=== PATIENT | female | born 1985 | race Caucasian/White ===

== ENCOUNTER 2017-07-16 18:36 | Emergency (ER) | payer BC, OTHER ==
[2017-07-16] MEDS ORDERED: SODIUM CHLORIDE 0.9% 1,000 ML IV STA (18:50)
[2017-07-16] MEDS ORDERED: methylPREDNISolone SOD SUCCI 125 MG/2 ML VIAL IV STA (18:50)
[2017-07-16] MEDS ORDERED: diphenhydrAMINE 50 MG/ML 1 ML VIAL IVP STA (18:50)
[2017-07-16] MEDS ORDERED: FAMOTIDINE 20 MG/2 ML VIAL IV STA (18:50)
--- NOTE | 2017-07-16 18:53 | ED ---
Allergic Reaction HPI - General Chief complaint: Allergic Reaction Stated complaint: ALLERGIC REACTION Time Seen by Provider: 07/16/17 18:43 Source: patient Mode of arrival: ambulatory Limitations: no limitations - History of Present Illness Initial Comments: 32-year-old female patient presents to the emergency department today for complaints of ALLERGIC reaction. Patient states that this morning she started to develop a rash over her abdomen. States that throughout the afternoon it has started to spread down to her legs. Patient states the rash is very itchy and burning. States that in the car on the way here her lips started to tingle. Patient is unsure what could be causing this reaction. States that she was sick since Thursday with vomiting and diarrhea. States that symptoms resolved on Thursday. States that she has had a decreased appetite since then. States that she did apply Benadryl cream to the rash however did not help. She denies ingestion of any other medications. Denies any use of new soaps, lotions , creams, acosta. Patient denies any throat swelling or difficulty breathing. Patient denies any recent fever, chills, chest pain, abdominal pain, back pain, numbness, tingling, dizziness, weakness, hematuria, dysuria, urinary urgency, urinary frequency, headache, visual changes, or any other complaints. - Related Data Home Medications Medication Instructions Recorded Confirmed HYDROcodone/APAP 10-325MG [[place] 0.5 tab PO BID PRN 07/16/17 07/16/17 10-325] Norgestimate-Ethinyl Estradiol 1 tab PO DAILY 07/16/17 07/16/17 [Sprintec 28 Day Tablet] Previous Rx's Medication Instructions Recorded Famotidine [Pepcid] 20 mg PO DAILY #3 tablet 07/16/17 predniSONE 50 mg PO DAILY #3 tablet 07/16/17 Allergies Allergy/AdvReac Type Severity Reaction Status Date / Time No Known Allergies Allergy Verified 07/16/17 19:14 Review of Systems ROS Statement: Those systems with pertinent positive or pertinent negative responses have been documented in the HPI. ROS Other: All systems not noted in ROS Statement are negative. Past Medical History Past Medical History: No Reported History History of Any Multi-Drug Resistant Organisms: None Reported Additional Past Surgical History / Comment(s): Patient has had nose surgery that resulted from a dog bite. Past Anesthesia/Blood Transfusion Reactions: No Reported Reaction Past Psychological History: No Psychological Hx Reported Smoking Status: Current every day smoker Past Alcohol Use History: None Reported Past Drug Use History: None Reported - Past Family History Mother Family Medical History: Thyroid Disorder General Exam Limitations: no limitations General appearance: alert, in no apparent distress, other (This is a well- developed, well-nourished adult female patient in no acute distress. Vital signs upon presentation are temperature 98.0F, pulse 90, respirations 20, blood pressure 154/91, pulse ox 100% on room air.) Eye exam: Present: normal appearance, PERRL, EOMI. Absent: scleral icterus, conjunctival injection, periorbital swelling ENT exam: Present: normal exam, normal oropharynx, mucous membranes moist Respiratory exam: Present: normal lung sounds bilaterally. Absent: respiratory distress, wheezes, rales, rhonchi, stridor Cardiovascular Exam: Present: regular rate, normal rhythm, normal heart sounds. Absent: systolic murmur, diastolic murmur, rubs, gallop, clicks GI/Abdominal exam: Present: soft, normal bowel sounds. Absent: distended, tenderness, guarding, rebound, rigid Neurological exam: Present: alert, oriented X3, CN II-XII intact Psychiatric exam: Present: normal affect, normal mood Skin exam: Present: warm, dry, intact, normal color, rash (Patient has urticaria over her trunk and her upper thighs.) Course Vital Signs 07/16/17 07/16/17 07/16/17 18:39 19:04 19:12 Temperature 98.0 F 98.3 F Pulse Rate 90 69 Respiratory 20 18 16 Rate Blood Pressure 154/91 124/78 O2 Sat by Pulse 100 100 Oximetry 07/16/17 07/16/17 20:00 21:00 Temperature 98.0 F Pulse Rate 71 Respiratory 16 18 Rate Blood Pressure 103/66 O2 Sat by Pulse 97 Oximetry Medical Decision Making - Medical Decision Making 32-year-old female patient presented to the emergency department today for evaluation of rash to her trunk and upper thighs. Physical examination did reveal an urticarial type rash. Patient states that she also had some lip tingling. Her rash was itchy. We did treat her for ALLERGIC reaction with Benadryl, site Medrol and Pepcid IV. Patient is feeling better at time of discharge but still exhibits some evidence of the rash. We will give her prescription for Pepcid and prednisone as well as instructions to continue taking Benadryl every 6 hours as needed. Return parameters were discussed in detail. She is instructed to follow-up with her primary care physician for recheck in 1-2 days per she verbalizes understanding and agrees with this plan. Disposition Clinical Impression: Allergic reaction Disposition: HOME SELF-CARE Condition: Good Instructions: Urticaria (ED), General Allergic Reaction (ED) Additional Instructions: Take medications as directed. Continue Benadryl use 25 mg every 6 hours as needed. Return here immediately for any new, worsening, or concerning symptoms. Prescriptions: Famotidine [Pepcid] 20 mg PO DAILY #3 tablet predniSONE 50 mg PO DAILY #3 tablet Is patient prescribed a controlled substance at d/c from ED?: No Referrals: [facility] [Primary Care Provider] - 1-2 days Time of Disposition: 20:56
[2017-07-16 21:09] VITALS: BP 103/66; PULSE 71; RESP 18; TEMP 98
== END 2017-07-16 21:00 | disposition home or self-care (01) ==
LOC: EC 18:36 → SUPCPDRO 18:36 → EC 21:00
DX: T78.40XA Allergy, unspecified, initial encounter (principal); F17.200 Nicotine dependence, unspecified, uncomplicated; Z79.3 Long term (current) use of hormonal contraceptives
CPT/HCPCS: 99283; 96374; 96375 ×2; 96361 ×2; J1200; J2930

== ENCOUNTER 2018-05-16 20:34 | Emergency (ER) | payer OTHER ==
[2018-05-16] MEDS ORDERED: LIDOCAINE 1% INJ 10MG/ML (20 ML MDV) SQ ONE (22:06)
[2018-05-16] MEDS ORDERED: SULFAMETH-TMP DS STARTER PACK 2 TAB BTL PO STA (22:06)
[2018-05-16] MEDS ORDERED: KETOROLAC 30 MG/ML 1 ML VIAL IM STA (22:06)
--- NOTE | 2018-05-16 22:10 | ED ---
Skin/Abscess/FB HPI - General Chief complaint: Skin/Abscess/Foreign Body Stated complaint: Abscess Time Seen by Provider: 05/16/18 20:47 Source: patient Mode of arrival: ambulatory Limitations: no limitations - History of Present Illness Initial comments: 33-year-old female patient presents to the emergency department today for evaluation of abscess to the right labia. Patient states that she cut herself shaving a little over a week ago. Patient states starting Thursday she developed some swelling and pain to the area. Patient states she has been doing warm baths and try to squeeze the area but she has had no drainage. States that she has been applying boil ease without relief. This area is quite painful. She denies any abnormal vaginal bleeding or discharge. Denies any fevers or chills with this. Denies any history of abscess or MRSA. Patient denies any recent rash, shortness breath, chest pain, abdominal pain, nausea, vomiting, diarrhea, constipation, back pain, numbness, tingling, dizziness, weakness, hematuria, dysuria, urinary urgency, urinary frequency, headache, visual changes, or any other complaints. - Related Data Home Medications Medication Instructions Recorded Confirmed HYDROcodone/APAP 10-325MG [[place] 0.5 tab PO BID PRN 07/16/17 07/16/17 10-325] Norgestimate-Ethinyl Estradiol 1 tab PO DAILY 07/16/17 07/16/17 [Sprintec 28 Day Tablet] Previous Rx's Medication Instructions Recorded Famotidine [Pepcid] 20 mg PO DAILY #3 tablet 07/16/17 predniSONE 50 mg PO DAILY #3 tablet 07/16/17 Ibuprofen [Motrin] 600 mg PO Q8HR PRN #30 tab 05/16/18 Sulfamethoxazole/Trimethoprim 1 each PO BID #20 tablet 05/16/18 [Bactrim DS 800-160 mg] Allergies Allergy/AdvReac Type Severity Reaction Status Date / Time No Known Allergies Allergy Verified 05/16/18 20:40 Review of Systems ROS Statement: Those systems with pertinent positive or pertinent negative responses have been documented in the HPI. ROS Other: All systems not noted in ROS Statement are negative. Past Medical History Past Medical History: No Reported History History of Any Multi-Drug Resistant Organisms: None Reported Additional Past Surgical History / Comment(s): Patient has had nose surgery that resulted from a dog bite. Past Anesthesia/Blood Transfusion Reactions: No Reported Reaction Past Psychological History: No Psychological Hx Reported Smoking Status: Current every day smoker Past Alcohol Use History: Occasional Past Drug Use History: None Reported - Past Family History Mother Family Medical History: Thyroid Disorder General Exam Limitations: no limitations General appearance: alert, in no apparent distress, other (This is a well- developed, well-nourished adult female patient in no acute distress. Vital signs upon presentation are temperature 98.1F, pulse 85, respirations 16, blood pressure 142/84, pulse ox 100% on room air.) Eye exam: Present: normal appearance, PERRL, EOMI. Absent: scleral icterus, conjunctival injection, periorbital swelling ENT exam: Present: normal exam, normal oropharynx, mucous membranes moist Respiratory exam: Present: normal lung sounds bilaterally. Absent: respiratory distress, wheezes, rales, rhonchi, stridor Cardiovascular Exam: Present: regular rate, normal rhythm, normal heart sounds. Absent: systolic murmur, diastolic murmur, rubs, gallop, clicks GI/Abdominal exam: Present: soft, normal bowel sounds. Absent: distended, tenderness, guarding, rebound, rigid External exam: Present: other (Patient has 2 cm x 1 cm abscess noted to the right labia near the groin. Not near the Bartholin gland region. There is no current drainage. The area is indurated with minimal fluctuance. Minimal surrounding cellulitis.). Absent: normal external exam Neurological exam: Present: alert, oriented X3, CN II-XII intact Psychiatric exam: Present: normal affect, normal mood Skin exam: Present: warm, dry, intact, normal color. Absent: rash Course Vital Signs 05/16/18 20:36 Temperature 98.1 F Pulse Rate 85 Respiratory 16 Rate Blood Pressure 142/84 O2 Sat by Pulse 100 Oximetry Procedures - Incision & Drainage Consent Obtained: verbal consent Indication: Abscess Site: vulva/vagina (Right labia) Size (cm): 2 Anesthetic Used: lidocaine 1% Amount (mLs): 5 I&D Cleaning Method: Betadine Scalpel Used: #11 I&D Drainage Obtained: Pus, Blood Packing: Iodoform Culture Obtained?: Yes Patient Tolerated Procedure: well, no complications Medical Decision Making - Medical Decision Making 33-year-old female patient presents to the emergency department today for evaluation of abscess to the right labia. Physical examination did reveal a 2 cm x 1 cm abscess that was indurated with minimal fluctuance. Did perform incision and drainage of the area did get a small amount of pus and blood from the area. This was sent for culture. I did pack the wound using 1/4 inch iodoform gauze. We did start Bactrim here in the emergency department. She'll be discharged home with pain medication and a prescription for Bactrim. She is instructed to follow-up with her primary care physician for recheck of the wound in 1-2 days. Return parameters discussed in detail. She verbalizes understanding and agrees with this plan. Disposition Clinical Impression: Abscess of right genital labia Disposition: HOME SELF-CARE Condition: Good Instructions (If sedation given, give patient instructions): Abscess Incision and Drainage (ED) Additional Instructions: Do warm compresses or take warm baths 4-5 times per day. Leave packing in for at least three days, it may fall out sooner, this is okay. Complete antibiotic prescription in full. Follow-up for recheck of the wound in 1-2 days. Return to the emergency department immediately for any new, worsening, or concerning symptoms. Prescriptions: Ibuprofen [Motrin] 600 mg PO Q8HR PRN #30 tab PRN Reason: Pain Sulfamethoxazole/Trimethoprim [Bactrim DS 800-160 mg] 1 each PO BID #20 tablet Is patient prescribed a controlled substance at d/c from ED?: No Referrals: [facility] [Primary Care Provider] - 1-2 days Time of Disposition: 22:42
[2018-05-16] MEDS ORDERED: ACET/COD 300 MG/30 MG STARTER PACK 6 TAB BTL PO STA (22:39)
[2018-05-16] MEDS ORDERED: IBUPROFEN 600 MG STARTER PACK 4 TAB BTL PO STA (22:39)
[2018-05-16 23:02] VITALS: BP 137/84; PULSE 71; RESP 18; TEMP 98.3
== END 2018-05-16 22:48 | disposition home or self-care (01) ==
LOC: EC 20:34
DX: N76.4 Abscess of vulva (principal); F17.200 Nicotine dependence, unspecified, uncomplicated; Z79.3 Long term (current) use of hormonal contraceptives; Y93.E8 Activity, other personal hygiene
CPT/HCPCS: 87070; 87205; 99283; 56405; 96372; J2001; J1885

== ENCOUNTER 2018-05-18 15:33 | Emergency (ER) | payer OTHER ==
[2018-05-18 15:37] VITALS: BP 117/79; PULSE 85; RESP 18; TEMP 97.9
--- NOTE | 2018-05-18 16:09 | ED ---
Skin/Abscess/FB HPI - General Chief complaint: Skin/Abscess/Foreign Body Stated complaint: [place]-Abscess on groin Time Seen by Provider: 05/18/18 15:40 Source: patient, RN notes reviewed, old records reviewed Mode of arrival: ambulatory Limitations: no limitations - History of Present Illness Initial comments: Patient is a 33-year-old female presents today and she complained an abscess over her right labia. Patient reports that she was seen in emergency department 2 days ago. The area was incised and drained. She was started on Bactrim. She's been taking 1 tablet twice a day for the past week. Patient reports she's had no fevers or chills. She reports that the packing fell out today. She states that still is firm and erythematous. - Related Data Home Medications Medication Instructions Recorded Confirmed Sulfamethoxazole/Trimethoprim 1 tab PO BID 05/18/18 05/18/18 [Bactrim DS 800-160 mg] Previous Rx's Medication Instructions Recorded Ibuprofen [Motrin] 600 mg PO Q8HR PRN #30 tab 05/16/18 Sulfamethox-Tmp 800-160Mg [Bactrim 2 tab PO Q12HR #40 tab 05/18/18 DS 800-160 mg] Allergies Allergy/AdvReac Type Severity Reaction Status Date / Time No Known Allergies Allergy Verified 05/18/18 16:51 Review of Systems ROS Statement: Those systems with pertinent positive or pertinent negative responses have been documented in the HPI. ROS Other: All systems not noted in ROS Statement are negative. Past Medical History Past Medical History: No Reported History History of Any Multi-Drug Resistant Organisms: None Reported Additional Past Surgical History / Comment(s): Patient has had nose surgery that resulted from a dog bite. Past Anesthesia/Blood Transfusion Reactions: No Reported Reaction Past Psychological History: No Psychological Hx Reported Smoking Status: Current every day smoker Past Alcohol Use History: Occasional Past Drug Use History: None Reported - Past Family History Mother Family Medical History: Thyroid Disorder General Exam - General Exam Comments Initial Comments: This is a 33-year-old female. Alert and oriented 3. Patient appears in no significant distress. Limitations: no limitations General appearance: alert, in no apparent distress Head exam: Present: atraumatic, normocephalic, normal inspection Eye exam: Present: normal appearance, PERRL, EOMI. Absent: scleral icterus, conjunctival injection, periorbital swelling ENT exam: Present: normal exam, mucous membranes moist Neck exam: Present: normal inspection. Absent: tenderness, meningismus, lymphadenopathy Respiratory exam: Present: normal lung sounds bilaterally. Absent: respiratory distress, wheezes, rales, rhonchi, stridor Cardiovascular Exam: Present: regular rate, normal rhythm, normal heart sounds. Absent: systolic murmur, diastolic murmur, rubs, gallop, clicks GI/Abdominal exam: Present: soft, normal bowel sounds. Absent: distended, tenderness, guarding, rebound, rigid External exam: Present: erythema (Patient is swelling and erythema over the right labia. Evidence of purulent drainage over abscess area.), swelling. Absent: normal external exam Extremities exam: Present: normal inspection, full ROM, normal capillary refill. Absent: tenderness, pedal edema, joint swelling, calf tenderness Back exam: Present: normal inspection Neurological exam: Present: alert, oriented X3, CN II-XII intact Course Vital Signs 05/18/18 15:34 Temperature 97.9 F Pulse Rate 85 Respiratory 18 Rate Blood Pressure 117/79 O2 Sat by Pulse 100 Oximetry Procedures - Incision & Drainage Site: vulva/vagina (Right labia majora) Size (cm): 5 Anesthetic Used: lidocaine 1% Amount (mLs): 5 I&D Cleaning Method: Iodine Scalpel Used: #11 I&D Drainage Obtained: Pus, Blood Packing: Iodoform Culture Obtained?: No Patient Tolerated Procedure: well, no complications Medical Decision Making - Medical Decision Making 33-year-old female presents from custodial for reevaluation of right labial abscess. She had this incised and drained 2 days ago. At this time her packing fell out. She continues to have some erythema. Patient underwent re-incision and drainage. Approximately 10 mL of purulents fluid removed. Her previous culture grew MRSA. Advised Patient to increase her Bactrim dose. Discussed close follow-up with PCP. All questions answered return parameters were discussed. Disposition Clinical Impression: Abscess of right genital labia Disposition: HOME SELF-CARE Condition: Good Instructions (If sedation given, give patient instructions): Abscess Incision and Drainage (ED) Additional Instructions: Continue to do warm baths and soak. If the packing falls out next 48 hours it' s okay. Patient should follow-up with MONITORING AND EVALUATION ADVISOR and PCP. Return to the emergency department if any alarming signs or symptoms occur. Prescriptions: Sulfamethox-Tmp 800-160Mg [Bactrim DS 800-160 mg] 2 tab PO Q12HR #40 tab Is patient prescribed a controlled substance at d/c from ED?: No Referrals: None,Stated [Primary Care Provider] - 1-2 days Time of Disposition: 17:09
[2018-05-18] MEDS ORDERED: LIDOCAINE 1% INJ 10MG/ML (20 ML MDV) SQ ONE (16:10)
[2018-05-18] MEDS ORDERED: ACET/COD 300 MG/30 MG STARTER PACK 6 TAB BTL PO STA (17:09)
--- NOTE | 2018-05-19 07:26 | CDI ---
Documentation Clarification OP Dear Tara LONG PA-C, PAC Please provide procedure done related to lidocaine administered. Thank you, Brando Smith Intelligence Intern If you have any questions, please contact [employer] at [phone] [facility]
== END 2018-05-18 17:15 | disposition home or self-care (01) ==
LOC: EC 15:33
DX: N76.4 Abscess of vulva (principal); F17.200 Nicotine dependence, unspecified, uncomplicated
CPT/HCPCS: 99283; 56405; J2001

== ENCOUNTER 2018-05-23 20:39 | Emergency (ER) | payer OTHER ==
[2018-05-23] MEDS ORDERED: SODIUM CHLORIDE 0.9% 1,000 ML IV STA (21:13)
[2018-05-23] MEDS ORDERED: ACETAMINOPHEN TAB 500 MG TAB PO STA (21:13)
--- NOTE | 2018-05-23 21:16 | ED ---
General Adult HPI - General Chief complaint: Fever Stated complaint: Fever/Chills recent MRSA Dx Time Seen by Provider: 05/23/18 21:01 Source: patient, RN notes reviewed Limitations: no limitations - History of Present Illness Initial comments: 33-year-old female presents to the emergency department for a chief fever. Patient states this has been ongoing for about 5 hours. Patient states she has had body aches as well as a headache with this. She denies cough or congestion. Denies any neck pain or stiffness. No nausea vomiting or diarrhea. Patient does have an abscess of the right labia that has been there for about a week. Patient has been on Bactrim for one week. It was cultured as MRSA. Patient states his abscess does seem to be getting better. Patient has no other complaints at this time including shortness of breath, chest pain, abdominal pain, nausea or vomiting, headache, or visual changes. - Related Data Home Medications Medication Instructions Recorded Confirmed Sulfamethoxazole/Trimethoprim 1 tab PO BID 05/18/18 05/18/18 [Bactrim DS 800-160 mg] Previous Rx's Medication Instructions Recorded Ibuprofen [Motrin] 600 mg PO Q8HR PRN #30 tab 05/16/18 Sulfamethox-Tmp 800-160Mg [Bactrim 2 tab PO Q12HR #40 tab 05/18/18 DS 800-160 mg] Allergies Allergy/AdvReac Type Severity Reaction Status Date / Time No Known Allergies Allergy Verified 05/23/18 20:49 Review of Systems ROS Statement: Those systems with pertinent positive or pertinent negative responses have been documented in the HPI. ROS Other: All systems not noted in ROS Statement are negative. Past Medical History Past Medical History: No Reported History History of Any Multi-Drug Resistant Organisms: None Reported Additional Past Surgical History / Comment(s): Patient has had nose surgery that resulted from a dog bite. Past Anesthesia/Blood Transfusion Reactions: No Reported Reaction Past Psychological History: No Psychological Hx Reported Smoking Status: Current every day smoker Past Alcohol Use History: Occasional Past Drug Use History: None Reported - Past Family History Mother Family Medical History: Thyroid Disorder General Exam Limitations: no limitations General appearance: alert, in no apparent distress Head exam: Present: atraumatic, normocephalic, normal inspection Eye exam: Present: normal appearance, PERRL, EOMI. Absent: scleral icterus, conjunctival injection, periorbital swelling ENT exam: Present: normal exam, normal oropharynx, mucous membranes moist, TM's normal bilaterally, normal external ear exam Neck exam: Present: normal inspection, full ROM (Full range of motion including flexion without stiffness or pain). Absent: tenderness, meningismus (Negative Kernig, negative Brudzinski), lymphadenopathy Respiratory exam: Present: normal lung sounds bilaterally. Absent: respiratory distress, wheezes, rales, rhonchi Cardiovascular Exam: Present: regular rate, normal rhythm, normal heart sounds. Absent: systolic murmur, diastolic murmur, rubs, gallop, clicks GI/Abdominal exam: Present: soft, normal bowel sounds. Absent: distended, tenderness, guarding, rebound, rigid Neurological exam: Present: alert, oriented X3, CN II-XII intact, normal gait Expanded Patient oriented to: Present: person, place, time Speech: Present: fluid speech Cranial nerves: EOM's Intact: Normal, Tongue Deviation: Normal, Nystagmus: Normal, Facial Sensation: Normal Cerebellar function: Finger to Nose: Normal, Heel to Morse: Normal, Romberg: Normal Upper motor neuron: Pronator Drift: Normal Sensory exam: Upper Extremity Light Touch: Normal, Upper Extremity Pin Prick: Normal, Lower Extremity Light Touch: Normal, Lower Extremity Pin Prick: Normal Motor strength exam: RUE: 5, LUE: 5, RLE: 5, LLE: 5 Eye Response: (4) open spontaneously Motor Response: (6) obeys commands Verbal Response: (5) oriented [place] Total: 15 Psychiatric exam: Present: normal affect, normal mood Course Vital Signs 05/23/18 05/23/18 20:45 22:20 Temperature 100 F H Pulse Rate 125 H 84 Respiratory 20 18 Rate Blood Pressure 139/84 107/66 O2 Sat by Pulse 99 96 Oximetry Medical Decision Making - Medical Decision Making 33-year-old female presents to the emergency department for a chief complaint of fever. This has been ongoing for about 5 hours. Patient states she has body aches and chills as well as a mild headache. She states this headache came on over a period of time. Denies sudden onset of headache. Denies cough or congestion. She denies any neck pain or stiffness. Negative Kernig and Brudzinski. No visual changes. No focal neuro deficits. She did have an abscess of the right labia that has been healing and has been on antibiotics for a week. She states this is much better than it has been about a week ago. I do not suspect this to be the cause of her fever given clinical improvement and sensitive antibiotic. CBC CMP were ordered. CBC shows a white count of 3.3, which does suggest a viral etiology. Urine was 15 white blood cells however 25 squamous cells, likely contaminated. Will be cultured. Influenza is negative. Chest x-ray shows a normal chest. Patient was given Tylenol, states headache was much improved and she is doing significantly better. She states she is ready to go home. Etiology is likely viral in nature. She does request a work note. She will follow up with primary care in the next 1-2 days or return here if she has any worsening symptoms. - Lab Data Result diagrams: 05/23/18 21:33 05/23/18 21:33 Lab Results 05/23/18 05/23/18 05/23/18 Range/Units 21:25 21:33 21:33 WBC 3.3 L (3.8-10.6) k/uL RBC 4.14 (3.80-5.40) m/uL Hgb 13.1 (11.4-16.0) gm/dL Hct 39.3 (34.0-46.0) % MCV 95.0 (80.0-100.0) fL MCH 31.6 (25.0-35.0) pg MCHC 33.2 (31.0-37.0) g/dL RDW 12.6 (11.5-15.5) % Plt Count 152 (150-450) k/uL Neutrophils % 77 % Lymphocytes % 12 % Monocytes % 8 % Eosinophils % 1 % Basophils % 0 % Neutrophils # 2.5 (1.3-7.7) k/uL Lymphocytes # 0.4 L (1.0-4.8) k/uL Monocytes # 0.3 (0-1.0) k/uL Eosinophils # 0.0 (0-0.7) k/uL Basophils # 0.0 (0-0.2) k/uL Sodium 135 L (137-145) mmol/L Potassium 4.6 (3.5-5.1) mmol/L Chloride 105 (98-107) mmol/L Carbon Dioxide 21 L (22-30) mmol/L Anion Gap 9 mmol/L BUN 12 (7-17) mg/dL Creatinine 0.66 (0.52-1.04) mg/dL Est GFR (CKD-EPI)AfAm >90 (>60 ml/min/1.73 sqM) Est GFR (CKD-EPI)NonAf >90 (>60 ml/min/1.73 sqM) Glucose 96 (74-99) mg/dL Plasma Lactic Acid Eddi (0.7-2.0) mmol/L Calcium 9.3 (8.4-10.2) mg/dL Total Bilirubin 0.4 (0.2-1.3) mg/dL AST 27 (14-36) U/L ALT 29 (9-52) U/L Alkaline Phosphatase 78 (38-126) U/L Total Protein 7.5 (6.3-8.2) g/dL Albumin 4.5 (3.5-5.0) g/dL Urine Color Urine Appearance (Clear) Urine pH (5.0-8.0) Ur Specific [place] (1.001-1.035) Urine Protein (Negative) Urine Glucose (UA) (Negative) Urine Ketones (Negative) Urine Blood (Negative) Urine Nitrite (Negative) Urine Bilirubin (Negative) Urine Urobilinogen (<2.0) mg/dL Ur Leukocyte Esterase (Negative) Urine RBC (0-5) /hpf Urine WBC (0-5) /hpf Ur Squamous Epith Cells (0-4) /hpf Urine Mucus (None) /hpf Urine HCG, Qual (Not Detectd) Influenza Type A RNA Not Detected (Not Detectd) Influenza Type B (PCR) Not Detected (Not Detectd) 05/23/18 05/23/18 05/23/18 Range/Units 21:33 21:36 22:55 WBC (3.8-10.6) k/uL RBC (3.80-5.40) m/uL Hgb (11.4-16.0) gm/dL Hct (34.0-46.0) % MCV (80.0-100.0) fL MCH (25.0-35.0) pg MCHC (31.0-37.0) g/dL RDW (11.5-15.5) % Plt Count (150-450) k/uL Neutrophils % % Lymphocytes % % Monocytes % % Eosinophils % % Basophils % % Neutrophils # (1.3-7.7) k/uL Lymphocytes # (1.0-4.8) k/uL Monocytes # (0-1.0) k/uL Eosinophils # (0-0.7) k/uL Basophils # (0-0.2) k/uL Sodium (137-145) mmol/L Potassium (3.5-5.1) mmol/L Chloride (98-107) mmol/L Carbon Dioxide (22-30) mmol/L Anion Gap mmol/L BUN (7-17) mg/dL Creatinine (0.52-1.04) mg/dL Est GFR (CKD-EPI)AfAm (>60 ml/min/1.73 sqM) Est GFR (CKD-EPI)NonAf (>60 ml/min/1.73 sqM) Glucose (74-99) mg/dL Plasma Lactic Acid Eddi 1.1 (0.7-2.0) mmol/L Calcium (8.4-10.2) mg/dL Total Bilirubin (0.2-1.3) mg/dL AST (14-36) U/L ALT (9-52) U/L Alkaline Phosphatase (38-126) U/L Total Protein (6.3-8.2) g/dL Albumin (3.5-5.0) g/dL Urine Color Yellow Urine Appearance Cloudy H (Clear) Urine pH 6.5 (5.0-8.0) Ur Specific [place] 1.021 (1.001-1.035) Urine Protein Trace H (Negative) Urine Glucose (UA) Negative (Negative) Urine Ketones Negative (Negative) Urine Blood Trace H (Negative) Urine Nitrite Negative (Negative) Urine Bilirubin Negative (Negative) Urine Urobilinogen 3.0 (<2.0) mg/dL Ur Leukocyte Esterase Moderate H (Negative) Urine RBC 11 H (0-5) /hpf Urine WBC 15 H (0-5) /hpf Ur Squamous Epith Cells 25 H (0-4) /hpf Urine Mucus Rare H (None) /hpf Urine HCG, Qual Not Detected (Not Detectd) Influenza Type A RNA (Not Detectd) Influenza Type B (PCR) (Not Detectd) Disposition Clinical Impression: Viral syndrome Disposition: HOME SELF-CARE Condition: Good Instructions (If sedation given, give patient instructions): Fever in Adults ( ED), Viral Syndrome (ED) Additional Instructions: Please drink any fluids. Follow-up with primary care in 1-2 days. Please return here if you have any worsening symptoms. Is patient prescribed a controlled substance at d/c from ED?: No Referrals: Karlos Diez MD [REFERRING] - 1-2 days Time of Disposition: 23:31
[2018-05-23 21:43] LABS: Basophils % (A) 0 %; Eosinophils % (A) 1 %; HCT 39.3 % (34.0-46.0); HGB 13.1 gm/dL (11.4-16.0); Lymphocytes # (A) 0.4 k/uL (1.0-4.8); Lymphocytes % (A) 12 %; MCH 31.6 pg (25.0-35.0); MCHC 33.2 g/dL (31.0-37.0); Mean Platelet Volume 6.3; Monocytes # (A) 0.3 k/uL (0-1.0); Monocytes % (A) 8 %; Neutrophils # (A) 2.5 k/uL (1.3-7.7); Neutrophils % (A) 77 %; Platelet Count 152 k/uL (150-450); RBC 4.14 m/uL (3.80-5.40); RDW 12.6 % (11.5-15.5); WBC 3.3 k/uL (3.8-10.6)
[2018-05-23 21:53] LABS: ALT 29 U/L (9-52); AST 27 U/L (14-36); Albumin 4.5 g/dL (3.5-5.0); Alkaline Phosphatase 78 U/L (38-126); Anion Gap 9 mmol/L; Blood Urea Nitrogen 12 mg/dL (7-17); Calcium 9.3 mg/dL (8.4-10.2); Carbon Dioxide 21 mmol/L (22-30); Chloride 105 mmol/L (98-107); Glucose 96 mg/dL (74-99); Potassium 4.6 mmol/L (3.5-5.1); Sodium 135 mmol/L (137-145); Total Bilirubin 0.4 mg/dL (0.2-1.3); Total Protein 7.5 g/dL (6.3-8.2)
--- NOTE | 2018-05-23 21:54 | XR ---
EXAMINATION TYPE: XR chest 2V DATE OF EXAM: 05/23/2018 COMPARISON: NONE HISTORY: Chest pain TECHNIQUE: Frontal and lateral views of the chest are obtained. FINDINGS: Heart and mediastinum are normal. Lungs are clear. Diaphragm is normal. Bony thorax appear s normal. IMPRESSION: Normal chest
[2018-05-23 22:22] VITALS: PULSE 84; RESP 18
[2018-05-23 23:09] LABS: Appearance,Urine Cloudy (Clear); Bilirubin,Urine Negative (Negative); Blood,Urine Trace (Negative); Color,Urine Yellow; Glucose,Urine (UA) Negative (Negative); Ketones,Urine Negative (Negative); Leukocyte Esterase,Urine Moderate (Negative); Mucus,Urine Rare /hpf; Nitrite,Urine Negative (Negative); PH, Urine 6.5 (5.0-8.0); Protein,Urine Trace (Negative); RBC,Urine 11 /hpf (0-5); Specific Gravity,Urine 1.021 (1.001-1.035); Squamous Epithelial Cell,Urine 25 /hpf (0-4); WBC,Urine 15 /hpf (0-5)
[2018-05-24 00:07] VITALS: BP 105/66; TEMP 99.2
== END 2018-05-23 23:54 | disposition home or self-care (01) ==
LOC: EC 20:39
DX: B34.9 Viral infection, unspecified (principal); F17.200 Nicotine dependence, unspecified, uncomplicated
CPT/HCPCS: 36415; 71046; 80053; 81001; 81025; 83605; 85025; 87040; 87086; 87502; 96360; 99283

== ENCOUNTER 2018-05-24 08:30 | Emergency (ER) | payer OTHER ==
[2018-05-24 08:39] VITALS: BP 113/77; PULSE 102; RESP 18; TEMP 98.7
[2018-05-24] MEDS ORDERED: diphenhydrAMINE 50 MG CAP PO STA (08:47)
--- NOTE | 2018-05-24 08:49 | ED ---
Allergic Reaction HPI - General Chief complaint: Allergic Reaction Stated complaint: Poss medication reaction Time Seen by Provider: 05/24/18 08:43 Source: patient, RN notes reviewed Mode of arrival: ambulatory Limitations: no limitations - History of Present Illness Initial Comments: 33-year-old female presents emergency Department chief complaint of rash. Patient states she believes she is ALLERGIC reaction. Patient has been taken Bactrim for 8 days. Patient states that she's been treated for lung abscess which is improving. No fever no chills. Patient states she has not taken any medications for this reaction. - Related Data Home Medications Medication Instructions Recorded Confirmed Sulfamethoxazole/Trimethoprim 1 tab PO BID 05/18/18 05/18/18 [Bactrim DS 800-160 mg] Previous Rx's Medication Instructions Recorded Ibuprofen [Motrin] 600 mg PO Q8HR PRN #30 tab 05/16/18 Sulfamethox-Tmp 800-160Mg [Bactrim 2 tab PO Q12HR #40 tab 05/18/18 DS 800-160 mg] Clindamycin HCl 300 mg PO Q6HR #28 cap 05/24/18 diphenhydrAMINE [Benadryl] 50 mg PO QID PRN #20 capsule 05/24/18 Allergies Allergy/AdvReac Type Severity Reaction Status Date / Time No Known Allergies Allergy Verified 05/24/18 08:35 Review of Systems ROS Statement: Those systems with pertinent positive or pertinent negative responses have been documented in the HPI. ROS Other: All systems not noted in ROS Statement are negative. Past Medical History Past Medical History: No Reported History History of Any Multi-Drug Resistant Organisms: None Reported, MRSA Date of last positivie culture/infection: 06/08 MDRO Source:: [facility] Additional Past Surgical History / Comment(s): Patient has had nose surgery that resulted from a dog bite. Past Anesthesia/Blood Transfusion Reactions: No Reported Reaction Past Psychological History: No Psychological Hx Reported Smoking Status: Current every day smoker Past Alcohol Use History: Occasional Past Drug Use History: None Reported - Past Family History Mother Family Medical History: Thyroid Disorder General Exam Limitations: no limitations General appearance: alert, in no apparent distress Head exam: Present: atraumatic, normocephalic, normal inspection Eye exam: Present: normal appearance, PERRL, EOMI. Absent: scleral icterus, conjunctival injection, periorbital swelling ENT exam: Present: normal exam, normal oropharynx, mucous membranes moist Neck exam: Present: normal inspection, full ROM. Absent: tenderness, meningismus, lymphadenopathy Respiratory exam: Present: normal lung sounds bilaterally. Absent: respiratory distress, wheezes, rales, rhonchi, stridor Cardiovascular Exam: Present: regular rate, normal rhythm, normal heart sounds. Absent: systolic murmur, diastolic murmur, rubs, gallop, clicks GI/Abdominal exam: Present: soft, normal bowel sounds. Absent: distended, tenderness, guarding, rebound, rigid Skin exam: Present: warm, dry, intact, normal color, urticaria. Absent: rash Course Vital Signs 05/24/18 08:35 Temperature 98.7 F Pulse Rate 102 H Respiratory 18 Rate Blood Pressure 113/77 O2 Sat by Pulse 97 Oximetry Medical Decision Making - Medical Decision Making 33-year-old female presents emergency from for rash. Patient is having ALLERGIC reaction to Bactrim. Patient will be discontinued Bactrim started on clindamycin and Benadryl. Disposition Clinical Impression: Adverse reaction to sulfa antibiotic Disposition: HOME SELF-CARE Condition: Stable Instructions (If sedation given, give patient instructions): Antibiotic Medication Allergy (ED) Additional Instructions: Please return to the Emergency Department if symptoms worsen or any other concerns. Prescriptions: Clindamycin HCl 300 mg PO Q6HR #28 cap diphenhydrAMINE [Benadryl] 50 mg PO QID PRN #20 capsule PRN Reason: Allergic Reaction Is patient prescribed a controlled substance at d/c from ED?: No Referrals: None,Stated [Primary Care Provider] - 1-2 days Time of Disposition: 08:49
== END 2018-05-24 08:56 | disposition home or self-care (01) ==
LOC: EC 08:30
DX: R21 Rash and other nonspecific skin eruption (principal); T37.0X5A Adverse effect of sulfonamides, initial encounter; F17.200 Nicotine dependence, unspecified, uncomplicated
CPT/HCPCS: 99283

== ENCOUNTER 2018-05-25 20:45 | Emergency (ER) | payer OTHER ==
[2018-05-25 20:54] VITALS: BP 102/66; PULSE 100; RESP 18; TEMP 98.5
[2018-05-25] MEDS ORDERED: diphenhydrAMINE 50 MG CAP PO STA (21:07)
[2018-05-25] MEDS ORDERED: FAMOTIDINE 20 MG TAB PO STA (21:07)
[2018-05-25] MEDS ORDERED: methylPREDNISolone SOD SUCCI 125 MG/2 ML VIAL IM ONE (21:07)
--- NOTE | 2018-05-25 21:16 | ED ---
General Adult HPI - General Chief complaint: Allergic Reaction Stated complaint: reaction to medication Time Seen by Provider: 05/25/18 20:58 Source: patient, RN notes reviewed Mode of arrival: ambulatory Limitations: no limitations - History of Present Illness Initial comments: 33-year-old female presents to the emergency department for a chief ALLERGIC reaction to medication. Patient states she was seen here 10 days ago for an abscess in the right labia. She states she was started on Bactrim at that time. Patient states that 2 days ago she was diagnosed with a viral syndrome and discharged home. She states that Bactrim was doubled and after that she started to have itching of her groin and buttock. She states she then presented to the emergency room yesterday was started on clindamycin. She states that the burning is getting worse and she now has burning in her throat. She states she believes this is due to the antibiotic. She states that the abscess in the groin is getting much better. She is not having any fevers or chills. Patient has been on Bactrim and clindamycin for 10 days now. - Related Data Previous Rx's Medication Instructions Recorded Ibuprofen [Motrin] 600 mg PO Q8HR PRN #30 tab 05/16/18 Sulfamethox-Tmp 800-160Mg [Bactrim 2 tab PO Q12HR #40 tab 05/18/18 DS 800-160 mg] Clindamycin HCl 300 mg PO Q6HR #28 cap 05/24/18 diphenhydrAMINE [Benadryl] 50 mg PO QID PRN #20 capsule 05/24/18 predniSONE 50 mg PO DAILY #5 tablet 05/25/18 Allergies Allergy/AdvReac Type Severity Reaction Status Date / Time sulfamethoxazole Allergy Rash/Hives Verified 05/25/18 20:54 [From Bactrim] trimethoprim [From Bactrim] Allergy Rash/Hives Verified 05/25/18 20:54 Review of Systems ROS Statement: Those systems with pertinent positive or pertinent negative responses have been documented in the HPI. ROS Other: All systems not noted in ROS Statement are negative. Past Medical History Past Medical History: No Reported History History of Any Multi-Drug Resistant Organisms: None Reported, MRSA Date of last positivie culture/infection: 06/08 MDRO Source:: [facility] Additional Past Surgical History / Comment(s): Patient has had nose surgery that resulted from a dog bite. Past Anesthesia/Blood Transfusion Reactions: No Reported Reaction Past Psychological History: No Psychological Hx Reported Smoking Status: Current every day smoker Past Alcohol Use History: None Reported Past Drug Use History: None Reported - Past Family History Mother Family Medical History: Thyroid Disorder General Exam Limitations: no limitations General appearance: alert, in no apparent distress Head exam: Present: atraumatic, normocephalic, normal inspection Eye exam: Present: normal appearance, PERRL, EOMI. Absent: scleral icterus, conjunctival injection, periorbital swelling ENT exam: Present: normal exam, normal oropharynx, mucous membranes moist, TM's normal bilaterally, normal external ear exam Neck exam: Present: normal inspection, full ROM. Absent: tenderness, meningismus, lymphadenopathy Respiratory exam: Present: normal lung sounds bilaterally. Absent: respiratory distress, wheezes, rales, rhonchi, stridor Cardiovascular Exam: Present: regular rate, normal rhythm, normal heart sounds. Absent: systolic murmur, diastolic murmur, rubs, gallop, clicks External exam: Present: other (No significant abscess noted in the right labia, no drainage, no erythema or spreading redness.) Neurological exam: Present: alert, oriented X3, CN II-XII intact Psychiatric exam: Present: normal affect, normal mood Skin exam: Present: warm, dry, intact, normal color. Absent: rash Course Vital Signs 05/25/18 20:49 Temperature 98.5 F Pulse Rate 100 Respiratory 18 Rate Blood Pressure 102/66 O2 Sat by Pulse 100 Oximetry Medical Decision Making - Medical Decision Making 43-year-old female presents to the emergency department for a chief complaint of dictation reaction. Patient states she has burning in her groin and buttock as well as in her throat. She states this started after they doubled Bactrim for her and has continued after she started clindamycin yesterday. Patient denies any fevers or chills in the past 2 days. Patient has been on antibiotics for 10 days. On examination of the vulva abscess was appeared to resolve. No erythema or drainage. No significant tenderness. At this point as patient has been on antibiotics for 10 days and it is causing her symptoms she will stop taking antibiotics. I did give her a steroid shot as well as prednisone for the next several days. On reevaluation she is feeling much better and throat is no longer burning or itching. Oropharynx is patent. Patient will be discharged home with follow[facility]. Did give her the number to [facility] by writing on the discharge paperwork. Did discuss to return here if she has any worsening symptoms or abscess recurs. Disposition Clinical Impression: Medication reaction Disposition: HOME SELF-CARE Condition: Good Instructions (If sedation given, give patient instructions): General Allergic Reaction (ED) Additional Instructions: You may stop antibiotics. Please take steroid as directed. Please continue to take Benadryl. Follow up with primary care in 1-2 days. Return to the ED if you have any worsening symptoms or abscess reoccurs. Prescriptions: predniSONE 50 mg PO DAILY #5 tablet Is patient prescribed a controlled substance at d/c from ED?: No Referrals: Pham Llamas MD [STAFF PHYSICIAN] - 1-2 days Robin Harvey MD [STAFF PHYSICIAN] - 1-2 days Time of Disposition: 21:17
== END 2018-05-25 21:35 | disposition home or self-care (01) ==
LOC: EC 20:45
DX: L29.8 Other pruritus (principal); J39.2 Other diseases of pharynx; T37.0X5A Adverse effect of sulfonamides, initial encounter; T36.8X5A Adverse effect of other systemic antibiotics, initial encounter; F17.200 Nicotine dependence, unspecified, uncomplicated; Z86.14 Personal history of Methicillin resistant Staphylococcus aureus infection; Z88.2 Allergy status to sulfonamides
CPT/HCPCS: 99283; 96372; J2930

== ENCOUNTER 2018-06-27 15:02 | Emergency (ER) | payer OTHER ==
[2018-06-27 15:06] VITALS: BP 120/80; PULSE 84; RESP 18; TEMP 98.1
--- NOTE | 2018-06-27 15:55 | ED ---
Skin/Abscess/FB HPI - General Chief complaint: Skin/Abscess/Foreign Body Stated complaint: Facial swelling Time Seen by Provider: 06/27/18 15:43 Source: patient, RN notes reviewed Mode of arrival: ambulatory Limitations: no limitations - History of Present Illness Initial comments: 33-year-old female presents emergency Department chief complaint of abscess to left side of her face. Patient states it started on she attempted to pop a pimple. Patient states swelled up on Thursday and Thursday. Patient states has not improved with clindamycin that she started on Thursday. Patient is not driving warm compresses. She states she's had no fever or chills no neck pain. Patient states that she is painful to the site. She doesn't history of MRSA. - Related Data Home Medications Medication Instructions Recorded Confirmed Clindamycin HCl 300 mg PO Q6H 06/27/18 06/27/18 Previous Rx's Medication Instructions Recorded Cephalexin [Keflex] 500 mg PO Q6HR #40 cap 06/27/18 Clindamycin HCl 300 mg PO Q6HR #40 cap 06/27/18 Fluconazole [Diflucan] 150 mg PO ONCE #2 tab 06/27/18 Allergies Allergy/AdvReac Type Severity Reaction Status Date / Time sulfamethoxazole Allergy Rash/Hives Verified 06/27/18 15:52 [From Bactrim] trimethoprim [From Bactrim] Allergy Rash/Hives Verified 06/27/18 15:52 Review of Systems ROS Statement: Those systems with pertinent positive or pertinent negative responses have been documented in the HPI. ROS Other: All systems not noted in ROS Statement are negative. Past Medical History Past Medical History: No Reported History History of Any Multi-Drug Resistant Organisms: MRSA Date of last positivie culture/infection: 06/08 MDRO Source:: [facility] Additional Past Surgical History / Comment(s): Patient has had nose surgery that resulted from a dog bite. Past Anesthesia/Blood Transfusion Reactions: No Reported Reaction Past Psychological History: No Psychological Hx Reported Smoking Status: Current every day smoker Past Alcohol Use History: None Reported Past Drug Use History: None Reported - Past Family History Mother Family Medical History: Thyroid Disorder General Exam Limitations: no limitations General appearance: alert, in no apparent distress Head exam: Present: atraumatic, normocephalic, normal inspection Eye exam: Present: normal appearance, PERRL, EOMI. Absent: scleral icterus, conjunctival injection, periorbital swelling ENT exam: Present: normal oropharynx, mucous membranes moist, other (Left side of the chin there is a 1 cm nonfluctuant firm abscess noted). Absent: normal exam Neck exam: Present: normal inspection. Absent: tenderness, meningismus, lymphadenopathy Respiratory exam: Present: normal lung sounds bilaterally. Absent: respiratory distress, wheezes, rales, rhonchi, stridor Course Vital Signs 06/27/18 15:03 Temperature 98.1 F Pulse Rate 84 Respiratory 18 Rate Blood Pressure 120/80 O2 Sat by Pulse 100 Oximetry Medical Decision Making - Medical Decision Making 33-year-old female presented for left-sided chin abscess. We did discuss opening this with an 18-gauge needle. Patient prefers to continue antibiotics including Keflex and warm compresses. Disposition Clinical Impression: Facial abscess Disposition: HOME SELF-CARE Condition: Undetermined Instructions (If sedation given, give patient instructions): Abscess (ED) Additional Instructions: Please return to the Emergency Department if symptoms worsen or any other concerns. Prescriptions: Clindamycin HCl 300 mg PO Q6HR #40 cap Fluconazole [Diflucan] 150 mg PO ONCE #2 tab Cephalexin [Keflex] 500 mg PO Q6HR #40 cap Is patient prescribed a controlled substance at d/c from ED?: No Referrals: None,Stated [Primary Care Provider] - 1-2 days Time of Disposition: 15:55
== END 2018-06-27 16:00 | disposition home or self-care (01) ==
LOC: EC 15:02
DX: L02.01 Cutaneous abscess of face (principal); F17.200 Nicotine dependence, unspecified, uncomplicated; Z86.14 Personal history of Methicillin resistant Staphylococcus aureus infection; Z88.1 Allergy status to other antibiotic agents; Z88.2 Allergy status to sulfonamides
CPT/HCPCS: 99283

== ENCOUNTER 2018-08-17 13:51 | Emergency (ER) | payer OTHER ==
[2018-08-17] MEDS ORDERED: ACETAMINOPHEN TAB 500 MG TAB PO STA (17:20)
[2018-08-17] MEDS ORDERED: IBUPROFEN 600 MG TAB PO STA (18:39)
[2018-08-17] MEDS ORDERED: DIAZEPAM 5 MG/ML 2 ML INJ IVP STA (18:40)
--- NOTE | 2018-08-17 19:01 | ED ---
Fever HPI - General Chief Complaint: Fever Stated Complaint: Shoulder pain, SOB, Rib pain Time Seen by Provider: 08/17/18 18:06 Source: patient Mode of arrival: ambulatory Limitations: no limitations - History of Present Illness Initial Comments: 33-year-old female patient presents to the emergency department today for evaluation of fever, cough, and right sided rib discomfort. Patient is also reporting pain to the right shoulder. Patient states she's been sick with these symptoms since Thursday. Patient states that temperature has been as high as 1 02.5F at home. Patient states she has been coughing up a small amount of sputum, she does report she had blood-tinged sputum on Thursday. States she does feel short of breath with this. States when she takes deep breaths the right side of her chest hurts. She denies any abdominal pain, nausea, vomiting, or headache. Denies any constipation or diarrhea. Denies any calf pain or tenderness. Denies any use of oral contraceptives, recent long car rides, or history of the blood clots. Denies any nasal congestion or sore throat. Denies any rash. Patient denies any recent back pain, numbness, tingling, dizziness, weakness, hematuria, dysuria, urinary urgency, urinary frequency, headache, v isual changes, or any other complaints. - Related Data Previous Rx's Medication Instructions Recorded Azithromycin [Zithromax Z-pack] 0 mg PO DIRECTED #6 tab 08/17/18 Cyclobenzaprine [Flexeril] 10 mg PO TID #15 tab 08/17/18 Ibuprofen [Motrin] 600 mg PO Q8HR PRN #30 tab 08/17/18 Promethazine 6.25MG/5Ml [Phenergan 6.25 mg PO Q6H #100 ml 08/17/18 Syrup] methylPREDNISolone [Medrol Dose 4 mg PO DIRECTED #1 pack 08/17/18 Pack] Allergies Allergy/AdvReac Type Severity Reaction Status Date / Time sulfamethoxazole Allergy Rash/Hives Verified 08/17/18 18:14 [From Bactrim] trimethoprim [From Bactrim] Allergy Rash/Hives Verified 08/17/18 18:14 Review of Systems ROS Statement: Those systems with pertinent positive or pertinent negative responses have been documented in the HPI. ROS Other: All systems not noted in ROS Statement are negative. Past Medical History Past Medical History: No Reported History History of Any Multi-Drug Resistant Organisms: MRSA Date of last positivie culture/infection: 06/08 MDRO Source:: R groin Additional Past Surgical History / Comment(s): Patient has had nose surgery that resulted from a dog bite. Past Anesthesia/Blood Transfusion Reactions: No Reported Reaction Past Psychological History: No Psychological Hx Reported Smoking Status: Current every day smoker Past Alcohol Use History: None Reported Past Drug Use History: None Reported - Past Family History Mother Family Medical History: Thyroid Disorder General Exam Limitations: no limitations General appearance: alert, in no apparent distress, other (Physical well- developed, well-nourished adult female patient in no acute distress. Vital signs on presentation her temperature 102.7F, pulse 128, respirations 22, blood pressure 143/89, pulse ox 98% on room air.) Eye exam: Present: normal appearance, PERRL, EOMI. Absent: scleral icterus, conjunctival injection, periorbital swelling ENT exam: Present: normal exam, normal oropharynx, mucous membranes moist, TM's normal bilaterally Neck exam: Present: normal inspection, tenderness (Right upper trapezius muscle tenderness/spasm), full ROM. Absent: meningismus, lymphadenopathy Respiratory exam: Present: normal lung sounds bilaterally. Absent: respiratory distress, wheezes, rales, rhonchi, stridor Cardiovascular Exam: Present: normal rhythm, tachycardia, normal heart sounds. Absent: systolic murmur, diastolic murmur, rubs, gallop, clicks GI/Abdominal exam: Present: soft, normal bowel sounds. Absent: distended, tenderness, guarding, rebound, rigid Neurological exam: Present: alert, oriented X3, CN II-XII intact Psychiatric exam: Present: normal affect, normal mood Skin exam: Present: warm, dry, intact, normal color. Absent: rash Course Vital Signs 08/17/18 08/17/18 08/17/18 15:00 19:23 19:30 Temperature 102.7 F H Pulse Rate 128 H 91 93 Respiratory 22 21 16 Rate Blood Pressure 143/89 110/69 O2 Sat by Pulse 98 96 95 Oximetry 08/17/18 20:36 Temperature 98.5 F Pulse Rate Respiratory Rate Blood Pressure O2 Sat by Pulse Oximetry Medical Decision Making - Medical Decision Making 33-year-old female patient presented to the emergency department today for evaluation of right-sided rib pain, right shoulder and neck pain, and cough. Patient is also febrile at 102.7F. Physical examination did reveal tenderness and muscle spasm to the right upper trapezius muscle. Lungs are clear to auscul tation with good air movement. Vital signs did improve with administration of antipyretic medications. Labs reviewed and did reveal white blood cell count at 12.5. D-dimer 0.97, and urine specimen containing 17 red blood cells, 20 white blood cells, 14 squamous epithelial cells, this is a contaminated specimen we will send for culture. Patient is not . Influenza testing was negative. CT angiography of the chest was obtained to rule out pulmonary embolism. Showed no pulmonary embolus but did show multifocal bronchopneumonia. Patient will be treated with azithromycin, we'll do a steroid Dosepak, and cough medication. She'll be treated with Flexeril for muscle spasm. She is in structed to follow-up with her primary care physician for recheck as soon as possible. Return parameters were discussed in detail. She verbalizes understanding and agrees this plan. - Lab Data Result diagrams: 08/17/18 18:59 08/17/18 18:59 Lab Results 08/17/18 08/17/18 08/17/18 Range/Units 18:59 18:59 18:59 WBC 12.5 H (3.8-10.6) k/uL RBC 3.73 L (3.80-5.40) m/uL Hgb 11.7 (11.4-16.0) gm/dL Hct 34.1 (34.0-46.0) % MCV 91.4 (80.0-100.0) fL MCH 31.4 (25.0-35.0) pg MCHC 34.3 (31.0-37.0) g/dL RDW 13.1 (11.5-15.5) % Plt Count 157 (150-450) k/uL Neutrophils % 78 % Lymphocytes % 11 % Monocytes % 7 % Eosinophils % 1 % Basophils % 0 % Neutrophils # 9.7 H (1.3-7.7) k/uL Lymphocytes # 1.4 (1.0-4.8) k/uL Monocytes # 0.9 (0-1.0) k/uL Eosinophils # 0.2 (0-0.7) k/uL Basophils # 0.0 (0-0.2) k/uL PT (9.0-12.0) sec INR (<1.2) APTT (22.0-30.0) sec D-Dimer (<0.60) mg/L FEU Sodium 136 L (137-145) mmol/L Potassium 3.6 (3.5-5.1) mmol/L Chloride 103 (98-107) mmol/L Carbon Dioxide 23 (22-30) mmol/L Anion Gap 10 mmol/L BUN 8 (7-17) mg/dL Creatinine 0.49 L (0.52-1.04) mg/dL Est GFR (CKD-EPI)AfAm >90 (>60 ml/min/1.73 sqM) Est GFR (CKD-EPI)NonAf >90 (>60 ml/min/1.73 sqM) Glucose 102 H (74-99) mg/dL Plasma Lactic Acid Eddi 0.7 (0.7-2.0) mmol/L Calcium 9.2 (8.4-10.2) mg/dL Total Bilirubin 0.8 (0.2-1.3) mg/dL AST 19 (14-36) U/L ALT 19 (9-52) U/L Alkaline Phosphatase 65 (38-126) U/L Troponin I (0.000-0.034) ng/mL Total Protein 7.0 (6.3-8.2) g/dL Albumin 4.1 (3.5-5.0) g/dL Urine Color Urine Appearance (Clear) Urine pH (5.0-8.0) Ur Specific [place] (1.001-1.035) Urine Protein (Negative) Urine Glucose (UA) (Negative) Urine Ketones (Negative) Urine Blood (Negative) Urine Nitrite (Negative) Urine Bilirubin (Negative) Urine Urobilinogen (<2.0) mg/dL Ur Leukocyte Esterase (Negative) Urine RBC (0-5) /hpf Urine WBC (0-5) /hpf Ur Squamous Epith Cells (0-4) /hpf Amorphous Sediment (None) /hpf Urine Bacteria (None) /hpf Urine Mucus (None) /hpf Urine HCG, Qual (Not Detectd) Influenza Type A RNA (Not Detectd) Influenza Type B (PCR) (Not Detectd) 08/17/18 08/17/18 08/17/18 Range/Units 18:59 18:59 18:59 WBC (3.8-10.6) k/uL RBC (3.80-5.40) m/uL Hgb (11.4-16.0) gm/dL Hct (34.0-46.0) % MCV (80.0-100.0) fL MCH (25.0-35.0) pg MCHC (31.0-37.0) g/dL RDW (11.5-15.5) % Plt Count (150-450) k/uL Neutrophils % % Lymphocytes % % Monocytes % % Eosinophils % % Basophils % % Neutrophils # (1.3-7.7) k/uL Lymphocytes # (1.0-4.8) k/uL Monocytes # (0-1.0) k/uL Eosinophils # (0-0.7) k/uL Basophils # (0-0.2) k/uL PT 10.3 (9.0-12.0) sec INR 1.0 (<1.2) APTT 30.2 H (22.0-30.0) sec D-Dimer 0.97 H (<0.60) mg/L FEU Sodium (137-145) mmol/L Potassium (3.5-5.1) mmol/L Chloride (98-107) mmol/L Carbon Dioxide (22-30) mmol/L Anion Gap mmol/L BUN (7-17) mg/dL Creatinine (0.52-1.04) mg/dL Est GFR (CKD-EPI)AfAm (>60 ml/min/1.73 sqM) Est GFR (CKD-EPI)NonAf (>60 ml/min/1.73 sqM) Glucose (74-99) mg/dL Plasma Lactic Acid Eddi (0.7-2.0) mmol/L Calcium (8.4-10.2) mg/dL Total Bilirubin (0.2-1.3) mg/dL AST (14-36) U/L ALT (9-52) U/L Alkaline Phosphatase (38-126) U/L Troponin I <0.012 (0.000-0.034) ng/mL Total Protein (6.3-8.2) g/dL Albumin (3.5-5.0) g/dL Urine Color Yellow Urine Appearance Cloudy H (Clear) Urine pH 6.5 (5.0-8.0) Ur Specific [place] 1.022 (1.001-1.035) Urine Protein 1+ H (Negative) Urine Glucose (UA) Negative (Negative) Urine Ketones Negative (Negative) Urine Blood Moderate H (Negative) Urine Nitrite Negative (Negative) Urine Bilirubin Negative (Negative) Urine Urobilinogen 3.0 (<2.0) mg/dL Ur Leukocyte Esterase Negative (Negative) Urine RBC 17 H (0-5) /hpf Urine WBC 20 H (0-5) /hpf Ur Squamous Epith Cells 14 H (0-4) /hpf Amorphous Sediment Rare H (None) /hpf Urine Bacteria Rare H (None) /hpf Urine Mucus Occasional H (None) /hpf Urine HCG, Qual (Not Detectd) Influenza Type A RNA (Not Detectd) Influenza Type B (PCR) (Not Detectd) 08/17/18 08/17/18 Range/Units 18:59 19:30 WBC (3.8-10.6) k/uL RBC (3.80-5.40) m/uL Hgb (11.4-16.0) gm/dL Hct (34.0-46.0) % MCV (80.0-100.0) fL MCH (25.0-35.0) pg MCHC (31.0-37.0) g/dL RDW (11.5-15.5) % Plt Count (150-450) k/uL Neutrophils % % Lymphocytes % % Monocytes % % Eosinophils % % Basophils % % Neutrophils # (1.3-7.7) k/uL Lymphocytes # (1.0-4.8) k/uL Monocytes # (0-1.0) k/uL Eosinophils # (0-0.7) k/uL Basophils # (0-0.2) k/uL PT (9.0-12.0) sec INR (<1.2) APTT (22.0-30.0) sec D-Dimer (<0.60) mg/L FEU Sodium (137-145) mmol/L Potassium (3.5-5.1) mmol/L Chloride (98-107) mmol/L Carbon Dioxide (22-30) mmol/L Anion Gap mmol/L BUN (7-17) mg/dL Creatinine (0.52-1.04) mg/dL Est GFR (CKD-EPI)AfAm (>60 ml/min/1.73 sqM) Est GFR (CKD-EPI)NonAf (>60 ml/min/1.73 sqM) Glucose (74-99) mg/dL Plasma Lactic Acid Eddi (0.7-2.0) mmol/L Calcium (8.4-10.2) mg/dL Total Bilirubin (0.2-1.3) mg/dL AST (14-36) U/L ALT (9-52) U/L Alkaline Phosphatase (38-126) U/L Troponin I (0.000-0.034) ng/mL Total Protein (6.3-8.2) g/dL Albumin (3.5-5.0) g/dL Urine Color Urine Appearance (Clear) Urine pH (5.0-8.0) Ur Specific [place] (1.001-1.035) Urine Protein (Negative) Urine Glucose (UA) (Negative) Urine Ketones (Negative) Urine Blood (Negative) Urine Nitrite (Negative) Urine Bilirubin (Negative) Urine Urobilinogen (<2.0) mg/dL Ur Leukocyte Esterase (Negative) Urine RBC (0-5) /hpf Urine WBC (0-5) /hpf Ur Squamous Epith Cells (0-4) /hpf Amorphous Sediment (None) /hpf Urine Bacteria (None) /hpf Urine Mucus (None) /hpf Urine HCG, Qual Not Detected (Not Detectd) Influenza Type A RNA Not Detected (Not Detectd) Influenza Type B (PCR) Not Detected (Not Detectd) - Radiology Data Radiology results: report reviewed, image reviewed CT chest angiography for PE was obtained. Report was reviewed in its entirety. Impression by Dr. Tia Macdonald shows negative for pulmonary embolism. Positive for multifocal bronchopneumonia. Disposition Clinical Impression: Multifocal pneumonia, Muscle spasm of right shoulder Disposition: HOME SELF-CARE Condition: Good Instructions (If sedation given, give patient instructions): Fever in Adults (ED), Muscle Spasm (ED), Pneumonia (ED) Additional Instructions: Complete antibiotic prescription in full. Take medications as directed. Follow-up with your primary care physician for recheck in 1-2 days. Return to the emergency department immediately for any new, worsening, or concerning symptoms Prescriptions: Cyclobenzaprine [Flexeril] 10 mg PO TID #15 tab methylPREDNISolone [Medrol Dose Pack] 4 mg PO DIRECTED #1 pack Ibuprofen [Motrin] 600 mg PO Q8HR PRN #30 tab PRN Reason: Pain Promethazine 6.25MG/5Ml [Phenergan Syrup] 6.25 mg PO Q6H #100 ml Azithromycin [Zithromax Z-pack] 0 mg PO DIRECTED #6 tab Is patient prescribed a controlled substance at d/c from ED?: No Referrals: Pham Llamas MD [STAFF PHYSICIAN] - 1-2 days Time of Disposition: 21:45
[2018-08-17 19:12] LABS: Basophils % (A) 0 %; Eosinophils # (A) 0.2 k/uL (0-0.7); Eosinophils % (A) 1 %; HCT 34.1 % (34.0-46.0); HGB 11.7 gm/dL (11.4-16.0); Lymphocytes # (A) 1.4 k/uL (1.0-4.8); Lymphocytes % (A) 11 %; MCH 31.4 pg (25.0-35.0); MCHC 34.3 g/dL (31.0-37.0); MCV 91.4 fL (80.0-100.0); Mean Platelet Volume 7.6; Monocytes # (A) 0.9 k/uL (0-1.0); Monocytes % (A) 7 %; Neutrophils # (A) 9.7 k/uL (1.3-7.7); Neutrophils % (A) 78 %; Platelet Count 157 k/uL (150-450); RBC 3.73 m/uL (3.80-5.40); RDW 13.1 % (11.5-15.5); WBC 12.5 k/uL (3.8-10.6)
[2018-08-17 19:23] LABS: ALT 19 U/L (9-52); AST 19 U/L (14-36); Albumin 4.1 g/dL (3.5-5.0); Alkaline Phosphatase 65 U/L (38-126); Anion Gap 10 mmol/L; Blood Urea Nitrogen 8 mg/dL (7-17); Calcium 9.2 mg/dL (8.4-10.2); Carbon Dioxide 23 mmol/L (22-30); Chloride 103 mmol/L (98-107); Glucose 102 mg/dL (74-99); Potassium 3.6 mmol/L (3.5-5.1); Sodium 136 mmol/L (137-145); Total Bilirubin 0.8 mg/dL (0.2-1.3)
[2018-08-17 19:27] LABS: Partial Thromboplastin Time 30.2 sec (22.0-30.0); Prothrombin Time 10.3 sec (9.0-12.0)
[2018-08-17] MEDS: SODIUM CHLORIDE 0.9% 500 ML 500 ML IV SCH ×3 (19:30→21:00)
[2018-08-17 19:32] LABS: D-Dimer 0.97 mg/L FEU (<0.60)
[2018-08-17 19:35] VITALS: RESP 16
[2018-08-17 20:18] LABS: Amorphous Sediment,Urine Rare /hpf; Appearance,Urine Cloudy (Clear); Bacteria,Urine Rare /hpf; Bilirubin,Urine Negative (Negative); Blood,Urine Moderate (Negative); Color,Urine Yellow; Glucose,Urine (UA) Negative (Negative); Ketones,Urine Negative (Negative); Leukocyte Esterase,Urine Negative (Negative); Mucus,Urine Occasional /hpf; Nitrite,Urine Negative (Negative); PH, Urine 6.5 (5.0-8.0); Protein,Urine 1+ (Negative); RBC,Urine 17 /hpf (0-5); Specific Gravity,Urine 1.022 (1.001-1.035); Squamous Epithelial Cell,Urine 14 /hpf (0-4); WBC,Urine 20 /hpf (0-5)
[2018-08-17 20:37] VITALS: TEMP 98.5
--- NOTE | 2018-08-17 21:17 | CT ---
EXAMINATION TYPE: CT chest angio for PE with contrast and with 3-D reconstruction renderings DATE OF EXAM: 08/17/2018 COMPARISON: None HISTORY: SOB, Chest pain CT DLP: 246.7 mGycm Automated exposure control for dose reduction was used. CONTRAST: CT Chest for pulmonary embolism performed with with IV Contrast, patient injected with 100 mL of Isovue 370. Three-D reconstructions. FINDINGS: AIRWAYS: Unremarkable. LUNGS: There is pulmonary consolidation in the right middle lobe measuring 6 cm mean diameter and in the right lower lobe anteriorly, measuring 4 cm mean diameter. These ill-defined consolidations are i n the axial compartment of the lung parenchyma and are consistent with multifocal bronchopneumonia. Lungs are otherwise unremarkable. PLEURAL SPACES: Negative. MEDIASTINUM: There is satisfactory enhancement of the pulmonary artery and its branches, with no CT e vidence for pulmonary embolism. The aorta has unremarkable appearance. There is no cardiomegaly or p ericardial effusion. There is no adenopathy, but there is right infrahilar and hilar lymph prominence , likely related to the RML/RLL bronchopneumonia. OTHER: No additional significant abnormality is seen. IMPRESSION: 1) Negative for pulmonary embolism. 2) Positive for multifocal bronchopneumonia. Would recommend 6 - 9 week follow-up low-dose CT to prov e resolution.
[2018-08-17] MEDS ORDERED: AZITHROMYCIN 500 MG TAB PO STA (21:45)
[2018-08-17] MEDS ORDERED: methylPREDNISolone SOD SUCCI 125 MG/2 ML VIAL IV STA (21:45)
[2018-08-17 22:31] VITALS: BP 99/64; PULSE 77
== END 2018-08-17 23:05 | disposition home or self-care (01) ==
LOC: EC 13:51
DX: J18.0 Bronchopneumonia, unspecified organism (principal); M62.838 Other muscle spasm; F17.200 Nicotine dependence, unspecified, uncomplicated; Z88.1 Allergy status to other antibiotic agents; Z88.2 Allergy status to sulfonamides
CPT/HCPCS: 99284; 96374; 96375; 96361; 36415; 93005; 85379; 80053; 83605; 84484; 85025; 85610; 85730; 81001; 81025; 87040; 87086; 87502; 71275; J2930; J3360; Q9967

== ENCOUNTER 2018-12-19 01:21 | Emergency (ER) | payer OTHER ==
[2018-12-19 01:28] VITALS: BP 144/90; PULSE 87; RESP 18; TEMP 98.9
[2018-12-19] MEDS ORDERED: LIDOCAINE 1% INJ 10MG/ML (20 ML MDV) SQ ONE (01:54)
[2018-12-19] MEDS ORDERED: AMOXIC-POT CLAV 875MG STARTER 2 EACH TABLET PO STA (01:54)
[2018-12-19] MEDS ORDERED: KETOROLAC 30 MG/ML 1 ML VIAL IM STA (01:54)
[2018-12-19] MEDS ORDERED: WATER FOR IRRIG, STERILE 1,000 ML BTL IRRIGATION ONE (01:54)
[2018-12-19] MEDS ORDERED: DIPH,PERTUS(ACELL)TETVAC-LF 0.5 ML VIAL IM ONE (02:15)
[2018-12-19] MEDS ORDERED: ACET/COD 300 MG/30 MG STARTER PACK 6 TAB BTL PO STA (02:46)
--- NOTE | 2018-12-19 02:49 | ED ---
Animal Bite HPI - General Chief Complaint: Animal Bite Stated Complaint: dog bite Time Seen by Provider: 12/19/18 01:39 Source: patient Mode of arrival: ambulatory - History of Present Illness Initial Comments: 33-year-old female patient presents to the emergency department today for evaluation after sustaining a dog bite to her face. Patient states that she was going to pet her mother's new dog when it reacted and bit her on the face causing lacerations to her lip. Patient was able to get the bleeding under control. States this occurred approximate hour prior to arrival. She states she did not clean the wounds. States that the dog is up-to-date on immunizations. She is unsure when her last tetanus vaccine was administered. She denies any difficulty opening and closing her mouth. Denies any difficulty swallowing. Denies any loss of consciousness with the injury. Patient denies any headache, neck pain, back pain, chest pain, shortness of breath, dizziness, weakness, abdominal pain, nausea, vomiting, or difficulties with bowel movements or urination. - Related Data Previous Rx's Medication Instructions Recorded Azithromycin [Zithromax Z-pack] 0 mg PO DIRECTED #6 tab 08/17/18 Cyclobenzaprine [Flexeril] 10 mg PO TID #15 tab 08/17/18 Fluconazole [Diflucan] 150 mg PO ONCE #2 tab 08/17/18 Ibuprofen [Motrin] 600 mg PO Q8HR PRN #30 tab 08/17/18 Promethazine 6.25MG/5Ml [Phenergan 6.25 mg PO Q6H #100 ml 08/17/18 Syrup] methylPREDNISolone [Medrol Dose 4 mg PO DIRECTED #1 pack 08/17/18 Pack] Amoxic-Pot Clav 875-125Mg 1 tab PO Q12HR #14 tablet 12/19/18 [Augmentin 875-125] Fluconazole [Diflucan] 150 mg PO ONCE #2 tab 12/19/18 Ibuprofen [Motrin] 600 mg PO Q8HR PRN #30 tab 12/19/18 Allergies Allergy/AdvReac Type Severity Reaction Status Date / Time sulfamethoxazole Allergy Rash/Hives Verified 12/19/18 01:28 [From Bactrim] trimethoprim [From Bactrim] Allergy Rash/Hives Verified 12/19/18 01:28 Review of Systems ROS Statement: Those systems with pertinent positive or pertinent negative responses have been documented in the HPI. ROS Other: All systems not noted in ROS Statement are negative. Past Medical History Past Medical History: No Reported History History of Any Multi-Drug Resistant Organisms: MRSA Date of last positivie culture/infection: 06/08 MDRO Source:: R groin Additional Past Surgical History / Comment(s): Patient has had nose surgery that resulted from a dog bite. Past Anesthesia/Blood Transfusion Reactions: No Reported Reaction Past Psychological History: No Psychological Hx Reported Smoking Status: Current every day smoker Past Alcohol Use History: Occasional Past Drug Use History: None Reported - Past Family History Mother Family Medical History: Thyroid Disorder General Exam General appearance: alert, in no apparent distress, other (Physical well- developed, well-nourished adult female patient in no acute distress. Vital signs upon presentation are temperature 98.9F, pulse 87, respirations 18, blood pressure 144/90, pulse ox 100% on room air.) Eye exam: Present: normal appearance, PERRL, EOMI. Absent: scleral icterus, conjunctival injection, periorbital swelling ENT exam: Present: normal oropharynx, mucous membranes moist, other (Patient has 1.5 cm laceration to the right lateral lower lip. There is a flap laceration noted to the right lower lip. There is abrasion to the left lower lip. There is soft tissue swelling noted over the lower lip. There 2 very superficial, small abrasions to the right maxillary region and left maxillary region. Patient has superficial abrasions noted to the left chin.). Absent: normal exam Respiratory exam: Present: normal lung sounds bilaterally. Absent: respiratory distress, wheezes, rales, rhonchi, stridor Cardiovascular Exam: Present: regular rate, normal rhythm, normal heart sounds. Absent: systolic murmur, diastolic murmur, rubs, gallop, clicks GI/Abdominal exam: Present: soft, normal bowel sounds. Absent: distended, tenderness, guarding, rebound, rigid Neurological exam: Present: alert, oriented X3, CN II-XII intact Psychiatric exam: Present: normal affect, normal mood Skin exam: Present: warm, dry, intact, normal color. Absent: rash Course Vital Signs 12/19/18 01:25 Temperature 98.9 F Pulse Rate 87 Respiratory 18 Rate Blood Pressure 144/90 O2 Sat by Pulse 100 Oximetry Procedures - Laceration Laceration #1 Consent Obtained: verbal consent Indication: laceration Site: lip (Right lower) Size (cm): 2 Description: linear Depth: simple, single layer Anesthetic Used: lidocaine 1% Anesthesia Technique: local infiltration Amount (mls): 2 Pre-repair: irrigated extensively (With 500 mL of sterile water) Type of Sutures: nylon Size of Sutures: 6-0 Number of Sutures: 3 Technique: simple, interrupted Patient Tolerated Procedure: well, no complications Laceration #2 Consent Obtained: verbal consent Indication: laceration Site: lip (Right lower lip) Size (cm): 1 Description: flap Depth: simple, single layer Anesthetic Used: lidocaine 1% Anesthesia Technique: local infiltration Amount (mls): 1 Pre-repair: irrigated extensively (500 mL sterile water) Type of Sutures: nylon Size of Sutures: 6-0 Number of Sutures: 2 Technique: simple, interrupted Patient Tolerated Procedure: well, no complications Medical Decision Making - Medical Decision Making 33-year-old female patient presented to the emergency department today for evaluation of dog bite to the face. Physical examination did reveal a 1.5 cm laceration to the right lateral lower lip, and a 1 cm flap laceration to the right lower lip. These were repaired as documented. Patient was started on Augmentin. Tetanus was updated. She'll be discharged home with anti- inflammatory pain medication and prescription for Augmentin. She is instructed to keep the wounds clean and dry. She was educated regarding signs of infection, wound care, and suture removal. She is instructed to follow-up with her primary care physician for recheck in 1-2 days. Return parameters were discussed in detail. She verbalizes understanding and agrees with this plan. Disposition Clinical Impression: Dog bite of face Disposition: HOME SELF-CARE Condition: Good Instructions (If sedation given, give patient instructions): Animal Bite (ED), Care For Your Stitches (ED), Facial Laceration (ED) Additional Instructions: Complete antibiotics in full. Keep wound clean and dry. Cleanse twice daily with warm water and antibacterial soap. Follow-up through primary care physician for recheck in 1-2 days. Return in 3-5 days have the stitches removed. Return immediately for any signs of infection including but not limited to redness, swelling, drainage of pus, fever, or chills. Return for any other new, worsening, or concerning symptoms. Prescriptions were sent to [facility] on [address]. Prescriptions: Amoxic-Pot Clav 875-125Mg [Augmentin 875-125] 1 tab PO Q12HR #14 tablet Fluconazole [Diflucan] 150 mg PO ONCE #2 tab Ibuprofen [Motrin] 600 mg PO Q8HR PRN #30 tab PRN Reason: Pain Is patient prescribed a controlled substance at d/c from ED?: No Referrals: None,Stated [Primary Care Provider] - 1-2 days Time of Disposition: 02:49
== END 2018-12-19 03:03 | disposition home or self-care (01) ==
LOC: EC 01:21
DX: S01.511A Laceration without foreign body of lip, initial encounter (principal); Z23 Encounter for immunization; F17.200 Nicotine dependence, unspecified, uncomplicated; Z88.1 Allergy status to other antibiotic agents; Z88.2 Allergy status to sulfonamides; W54.0XXA Bitten by dog, initial encounter
CPT/HCPCS: 90715; 99283; 12013; 90471; 96372; J2001; J1885

== ENCOUNTER 2019-02-14 19:23 | Emergency (ER) | payer BC, OTHER ==
[2019-02-14 19:47] VITALS: RESP 20; TEMP 98.4
[2019-02-14] MEDS ORDERED: SODIUM CHLORIDE 0.9% 1,000 ML IV STA (20:59)
[2019-02-14] MEDS ORDERED: MORPHINE SULFATE 4 MG/ML SYRINGE IV STA (20:59)
[2019-02-14] MEDS ORDERED: ONDANSETRON 4 MG/2 ML VIAL IVP STA (20:59)
[2019-02-14 21:26] LABS: Basophils # (A) 0.1 k/uL (0-0.2); Basophils % (A) 1 %; Eosinophils # (A) 0.1 k/uL (0-0.7); Eosinophils % (A) 1 %; HCT 38.8 % (34.0-46.0); HGB 13.5 gm/dL (11.4-16.0); Lymphocytes # (A) 3.2 k/uL (1.0-4.8); Lymphocytes % (A) 29 %; MCH 32.7 pg (25.0-35.0); MCHC 34.8 g/dL (31.0-37.0); Mean Platelet Volume 5.9; Monocytes # (A) 0.6 k/uL (0-1.0); Monocytes % (A) 6 %; Neutrophils # (A) 6.9 k/uL (1.3-7.7); Neutrophils % (A) 62 %; Platelet Count 243 k/uL (150-450); RBC 4.12 m/uL (3.80-5.40); RDW 12.2 % (11.5-15.5); WBC 11.1 k/uL (3.8-10.6)
[2019-02-14 21:44] LABS: Appearance,Urine Cloudy (Clear); Bilirubin,Urine Negative (Negative); Blood,Urine Negative (Negative); Color,Urine Yellow; Glucose,Urine (UA) Negative (Negative); Ketones,Urine Negative (Negative); Leukocyte Esterase,Urine Negative (Negative); Nitrite,Urine Negative (Negative); PH, Urine 7.5 (5.0-8.0); Protein,Urine Trace (Negative); Specific Gravity,Urine 1.027 (1.001-1.035)
[2019-02-14 21:45] LABS: Amorphous Sediment,Urine Rare /hpf; Bacteria,Urine Rare /hpf; Mucus,Urine Rare /hpf; RBC,Urine 3 /hpf (0-5); Squamous Epithelial Cell,Urine 17 /hpf (0-4); WBC,Urine 4 /hpf (0-5)
[2019-02-14 21:46] LABS: ALT 29 U/L (9-52); AST 26 U/L (14-36); African American GFR (CKD) >90 (>60 ml/min/1.73 sqM); Albumin 4.7 g/dL (3.5-5.0); Alkaline Phosphatase 64 U/L (38-126); Anion Gap 9 mmol/L; Blood Urea Nitrogen 15 mg/dL (7-17); Calcium 10.1 mg/dL (8.4-10.2); Carbon Dioxide 27 mmol/L (22-30); Chloride 105 mmol/L (98-107); Glucose 80 mg/dL (74-99); Non-African American GFR(CKD) >90 (>60 ml/min/1.73 sqM); Sodium 141 mmol/L (137-145); Total Bilirubin 0.4 mg/dL (0.2-1.3); Total Protein 7.8 g/dL (6.3-8.2)
--- NOTE | 2019-02-14 22:11 | CT ---
EXAMINATION TYPE: CT abdomen pelvis wo con DATE OF EXAM: 02/14/2019 COMPARISON: None HISTORY: right flank pain CT DLP: 460.1 mGycm Automated exposure control for dose reduction was used. TECHNIQUE: Helical acquisition of images was performed from the lung bases through the pelvis. FINDINGS: Lung bases are clear. There is no pleural effusion. Heart size is normal. There is no pericardial eff usion. Liver and spleen appear normal. Gallbladder appears normal. Bile ducts are not dilated. Stomach appea rs normal. There is no pancreatic mass. There is no adrenal mass. Kidneys have normal size and contour. There is no hydronephrosis. Ureters a re not dilated. Bladder distends smoothly. Uterus is anteverted. The cul-de-sac is clear. There is no evidence of a pelvic mass. The appendix is posterior and appears normal. There is no mesenteric edema. There is no ascites or free air. There is no sign of a bowel obstructio n. Lumbar vertebra have normal alignment. Disc spaces are fairly normal. Bony pelvis is intact. IMPRESSION: NEGATIVE CT SCAN ABDOMEN AND PELVIS. NO RENAL STONE OR OBSTRUCTION. NORMAL APPENDIX.
--- NOTE | 2019-02-14 22:26 | ED ---
General Adult HPI - General Chief complaint: Abdominal Pain Stated complaint: Kidney Pain Time Seen by Provider: 02/14/19 20:47 Source: patient, RN notes reviewed, old records reviewed Mode of arrival: ambulatory Limitations: no limitations - History of Present Illness Initial comments: 34-year-old female patient with no pertinent past history presents to ED complaining of right flank pain. Patient reports that this has been waxing and waning for approximately 2 years over the last 3 days the right flank pain is worse. Patient also reports nausea without emesis. Denies any other complaints. Denies any chance of being . Systemic: Pt denies fatigue, fever/chills, rash. Pt denies weakness, night sweats, weight loss. Neuro: Pt denies headache, visual disturbances, syncope or pre-syncope. HEENT: Pt denies ocular discharge or irritation, otalgia, rhinorrhea, pharyngitis or notable lymphadenopathy. Cardiopulmonary: Pt denies chest pain, SOB, heart palpitations, dyspnea on exertion. Abdominal/GI: Pt denies v/d. : Pt denies dysuria, burning w/ urination, frequency/urgency. Denies new onset urinary or bowel incontinence. MSK: Pt denies myalgia, loss of strength or function in extremities. Neuro: Pt denies new onset weakness, paresthesias. - Related Data Previous Rx's Medication Instructions Recorded Azithromycin [Zithromax Z-pack] 0 mg PO DIRECTED #6 tab 08/17/18 Cyclobenzaprine [Flexeril] 10 mg PO TID #15 tab 08/17/18 Fluconazole [Diflucan] 150 mg PO ONCE #2 tab 08/17/18 Ibuprofen [Motrin] 600 mg PO Q8HR PRN #30 tab 08/17/18 Promethazine 6.25MG/5Ml [Phenergan 6.25 mg PO Q6H #100 ml 08/17/18 Syrup] methylPREDNISolone [Medrol Dose 4 mg PO DIRECTED #1 pack 08/17/18 Pack] Amoxic-Pot Clav 875-125Mg 1 tab PO Q12HR #14 tablet 12/19/18 [Augmentin 875-125] Fluconazole [Diflucan] 150 mg PO ONCE #2 tab 12/19/18 Ibuprofen [Motrin] 600 mg PO Q8HR PRN #30 tab 12/19/18 Allergies Allergy/AdvReac Type Severity Reaction Status Date / Time sulfamethoxazole Allergy Rash/Hives Verified 02/14/19 19:47 [From Bactrim] trimethoprim [From Bactrim] Allergy Rash/Hives Verified 02/14/19 19:47 Review of Systems ROS Statement: Those systems with pertinent positive or pertinent negative responses have been documented in the HPI. ROS Other: All systems not noted in ROS Statement are negative. Past Medical History Past Medical History: No Reported History History of Any Multi-Drug Resistant Organisms: MRSA Date of last positivie culture/infection: 06/08 MDRO Source:: R groin Additional Past Surgical History / Comment(s): Patient has had nose surgery that resulted from a dog bite. Past Anesthesia/Blood Transfusion Reactions: No Reported Reaction Past Psychological History: No Psychological Hx Reported Smoking Status: Current every day smoker Past Alcohol Use History: Occasional Past Drug Use History: None Reported - Past Family History Mother Family Medical History: Thyroid Disorder General Exam - General Exam Comments Initial Comments: Constitutional: NAD, AOX3, Pt has pleasant affect. HEENT: NC/AT, trachea midline, neck supple, no lymphadenopathy. Posterior pharynx non erythematous, without exudates. External ears appear normal, without discharge. Mucous membranes moist. Eyes PERRLA, EOM intact. There is no scleral icterus. No pallor noted. Cardiopulmonary: RRR, no murmurs, rubs or gallops, no JVD noted. Lungs CTAB in anterior and posterior simmons. No peripheral edema. Abdominal exam: Abdomen soft and non-distended. Abdomen non-tender to palpation in all 4 quadrants. Seabrook sign is negative. Right flank mild tender to palpation. Bowel sounds active in LLQ. No hepatosplenomegaly. No ecchymosis Neuro: CN II-XII grossly intact. No nuchal rigidity. No raccon eyes, no cordova sign, no hemotympanum. No cervical spinal tenderness. MSK: No posterior calf tenderness bilaterally, homans sign negative bilaterally. Posterior tibialis and radial pulse +2 bilaterally. Sensation intact in upper and lower extremities. Full active ROM in upper and lower extremities, 5/5 stregnth. Limitations: no limitations Course Vital Signs 02/14/19 19:44 Temperature 98.4 F Pulse Rate 92 Respiratory 20 Rate Blood Pressure 130/72 O2 Sat by Pulse 98 Oximetry Medical Decision Making - Medical Decision Making 34-year-old female patient presents to ED complaining of right flank pain. Reports it has been ongoing for years hours gotten worse last 2 days. Reports nausea without emesis. Any other complaints. Denies any chance of being . Patient will signs are stable, afebrile. Physical exam displayed right flank mild tenderness to palpation. Laboratory investigations displayed slight leukocytosis of 11 however otherwise negative. UA is negative. HCG is negative. CT abdomen and pelvis without contrast that display acute process. Review physical exam more muscle skeletal nature. Exacerbated with torsion motions, right upper extremity movements. Patient will be discharged to follow up with primary care provider will return to ER physician worsens. Case discussed with Dr. Arredondo. - Lab Data Result diagrams: 02/14/19 21:13 02/14/19 21:13 Lab Results 02/14/19 02/14/19 02/14/19 Range/Units 21:13 21:13 21:13 WBC 11.1 H (3.8-10.6) k/uL RBC 4.12 (3.80-5.40) m/uL Hgb 13.5 (11.4-16.0) gm/dL Hct 38.8 (34.0-46.0) % MCV 94.0 (80.0-100.0) fL MCH 32.7 (25.0-35.0) pg MCHC 34.8 (31.0-37.0) g/dL RDW 12.2 (11.5-15.5) % Plt Count 243 (150-450) k/uL Neutrophils % 62 % Lymphocytes % 29 % Monocytes % 6 % Eosinophils % 1 % Basophils % 1 % Neutrophils # 6.9 (1.3-7.7) k/uL Lymphocytes # 3.2 (1.0-4.8) k/uL Monocytes # 0.6 (0-1.0) k/uL Eosinophils # 0.1 (0-0.7) k/uL Basophils # 0.1 (0-0.2) k/uL Sodium 141 (137-145) mmol/L Potassium 4.0 (3.5-5.1) mmol/L Chloride 105 (98-107) mmol/L Carbon Dioxide 27 (22-30) mmol/L Anion Gap 9 mmol/L BUN 15 (7-17) mg/dL Creatinine 0.78 (0.52-1.04) mg/dL Est GFR (CKD-EPI)AfAm >90 (>60 ml/min/1.73 sqM) Est GFR (CKD-EPI)NonAf >90 (>60 ml/min/1.73 sqM) Glucose 80 (74-99) mg/dL Plasma Lactic Acid Eddi 1.4 (0.7-2.0) mmol/L Calcium 10.1 (8.4-10.2) mg/dL Total Bilirubin 0.4 (0.2-1.3) mg/dL AST 26 (14-36) U/L ALT 29 (9-52) U/L Alkaline Phosphatase 64 (38-126) U/L Total Protein 7.8 (6.3-8.2) g/dL Albumin 4.7 (3.5-5.0) g/dL Lipase 182 (23-300) U/L Urine Color Urine Appearance (Clear) Urine pH (5.0-8.0) Ur Specific Clifford (1.001-1.035) Urine Protein (Negative) Urine Glucose (UA) (Negative) Urine Ketones (Negative) Urine Blood (Negative) Urine Nitrite (Negative) Urine Bilirubin (Negative) Urine Urobilinogen (<2.0) mg/dL Ur Leukocyte Esterase (Negative) Urine RBC (0-5) /hpf Urine WBC (0-5) /hpf Ur Squamous Epith Cells (0-4) /hpf Amorphous Sediment (None) /hpf Urine Bacteria (None) /hpf Urine Mucus (None) /hpf Urine HCG, Qual (Not Detectd) 02/14/19 02/14/19 Range/Units 21:20 21:20 WBC (3.8-10.6) k/uL RBC (3.80-5.40) m/uL Hgb (11.4-16.0) gm/dL Hct (34.0-46.0) % MCV (80.0-100.0) fL MCH (25.0-35.0) pg MCHC (31.0-37.0) g/dL RDW (11.5-15.5) % Plt Count (150-450) k/uL Neutrophils % % Lymphocytes % % Monocytes % % Eosinophils % % Basophils % % Neutrophils # (1.3-7.7) k/uL Lymphocytes # (1.0-4.8) k/uL Monocytes # (0-1.0) k/uL Eosinophils # (0-0.7) k/uL Basophils # (0-0.2) k/uL Sodium (137-145) mmol/L Potassium (3.5-5.1) mmol/L Chloride (98-107) mmol/L Carbon Dioxide (22-30) mmol/L Anion Gap mmol/L BUN (7-17) mg/dL Creatinine (0.52-1.04) mg/dL Est GFR (CKD-EPI)AfAm (>60 ml/min/1.73 sqM) Est GFR (CKD-EPI)NonAf (>60 ml/min/1.73 sqM) Glucose (74-99) mg/dL Plasma Lactic Acid Eddi (0.7-2.0) mmol/L Calcium (8.4-10.2) mg/dL Total Bilirubin (0.2-1.3) mg/dL AST (14-36) U/L ALT (9-52) U/L Alkaline Phosphatase (38-126) U/L Total Protein (6.3-8.2) g/dL Albumin (3.5-5.0) g/dL Lipase (23-300) U/L Urine Color Yellow Urine Appearance Cloudy H (Clear) Urine pH 7.5 (5.0-8.0) Ur Specific Clifford 1.027 (1.001-1.035) Urine Protein Trace H (Negative) Urine Glucose (UA) Negative (Negative) Urine Ketones Negative (Negative) Urine Blood Negative (Negative) Urine Nitrite Negative (Negative) Urine Bilirubin Negative (Negative) Urine Urobilinogen 2.0 (<2.0) mg/dL Ur Leukocyte Esterase Negative (Negative) Urine RBC 3 (0-5) /hpf Urine WBC 4 (0-5) /hpf Ur Squamous Epith Cells 17 H (0-4) /hpf Amorphous Sediment Rare H (None) /hpf Urine Bacteria Rare H (None) /hpf Urine Mucus Rare H (None) /hpf Urine HCG, Qual Not Detected (Not Detectd) Disposition Clinical Impression: Flank pain Disposition: HOME SELF-CARE Condition: Stable Instructions (If sedation given, give patient instructions): Abdominal Pain (ED), Flank Pain (ED) Additional Instructions: Follow up with primary care provider tomorrow. Return to ER if condition worsens in any way. Is patient prescribed a controlled substance at d/c from ED?: No Referrals: None,Stated [Primary Care Provider] - 1-2 days
[2019-02-14 22:44] VITALS: BP 120/70; PULSE 79
== END 2019-02-14 22:44 | disposition home or self-care (01) ==
LOC: EC 19:23
DX: R10.9 Unspecified abdominal pain (principal); R11.0 Nausea; F17.200 Nicotine dependence, unspecified, uncomplicated; Z32.02 Encounter for pregnancy test, result negative; Z88.1 Allergy status to other antibiotic agents; Z88.2 Allergy status to sulfonamides
CPT/HCPCS: 36415; 80053; 83605; 83690; 85025; 81001; 81025; 74176; 99284; 96374; 96375; 96361; J2270; J2405

== ENCOUNTER 2020-09-03 21:38 | Emergency (ER) | payer OTHER ==
--- NOTE | 2020-09-03 22:51 | XR ---
EXAMINATION TYPE: XR chest 1V DATE OF EXAM: 09/03/2020 COMPARISON: 05/23/2018 HISTORY: Cough. Short of breath. TECHNIQUE: FINDINGS: Heart and mediastinum are normal. Lungs are clear. Diaphragm is normal. Bony thorax is inta ct. IMPRESSION: Normal chest. No change.
[2020-09-03] MEDS ORDERED: guaiFENesin-DM 600/30MG 1 EACH TAB.ER.12H PO STA (23:32)
[2020-09-03] MEDS ORDERED: IPRATROPIUM-ALBUTEROL 3 ML NEB INHALATION STA (23:33)
--- NOTE | 2020-09-03 23:33 | ED ---
URI HPI - General Chief Complaint: Upper Respiratory Infection Stated Complaint: SOB,Cough Time Seen by Provider: 09/03/20 22:03 Source: patient Mode of arrival: ambulatory Limitations: no limitations - History of Present Illness Initial Comments: 35 year-old female patient presents to the emergency department today for evaluation of cough, congestion, shortness of breath. Patient states she's been sick for the last 3-4 days with symptoms. States that shortness of breath worsens when she lies down. She does have clear sputum production. Denies fe lore or chills. Does report a history of smoking cigarettes. Has been taking [id number] Robitussin without relief. Denies any chest pain or upper back pain. Patient denies any recent rash, abdominal pain, nausea, vomiting, diarrhea, constipation, back pain, numbness, tingling, dizziness, weakness, hematuria, dysuria, urinary urgency, urinary frequency, headache, visual changes, or any other complaints. - Related Data Previous Rx's Medication Instructions Recorded Azithromycin [Zithromax Z-pack (6 0 mg PO DIRECTED #6 tab 08/17/18 tabs)] Cyclobenzaprine [Flexeril] 10 mg PO TID #15 tab 08/17/18 Fluconazole [Diflucan] 150 mg PO ONCE #2 tab 08/17/18 Ibuprofen [Motrin] 600 mg PO Q8HR PRN #30 tab 08/17/18 Promethazine 6.25MG/5Ml [Phenergan 6.25 mg PO Q6H #100 ml 08/17/18 Syrup] methylPREDNISolone [Medrol Dose 4 mg PO DIRECTED #1 pack 08/17/18 Pack] Amoxic-Pot Clav 875-125Mg 1 tab PO Q12HR #14 tablet 12/19/18 [Augmentin 875-125] Fluconazole [Diflucan] 150 mg PO ONCE #2 tab 12/19/18 Ibuprofen [Motrin] 600 mg PO Q8HR PRN #30 tab 12/19/18 Albuterol Sulfate [Proair Hfa] 1 - 2 puff INHALATION Q6HR PRN #1 09/03/20 inhaler guaiFENesin-DM 600/30MG [Mucinex 2 each PO Q12HR PRN #20 tab.er.12h 09/03/20 Dm] Allergies Allergy/AdvReac Type Severity Reaction Status Date / Time sulfamethoxazole Allergy Rash/Hives Verified 09/03/20 21:48 [From Bactrim] trimethoprim [From Bactrim] Allergy Rash/Hives Verified 09/03/20 21:48 Review of Systems ROS Statement: Those systems with pertinent positive or pertinent negative responses have been documented in the HPI. ROS Other: All systems not noted in ROS Statement are negative. Past Medical History Past Medical History: No Reported History History of Any Multi-Drug Resistant Organisms: MRSA Date of last positivie culture/infection: 06/08 MDRO Source:: R groin Past Surgical History: No Surgical Hx Reported Additional Past Surgical History / Comment(s): Patient has had nose surgery that resulted from a dog bite. Past Anesthesia/Blood Transfusion Reactions: No Reported Reaction Past Psychological History: No Psychological Hx Reported Smoking Status: Current every day smoker Past Alcohol Use History: None Reported Past Drug Use History: None Reported - Past Family History Mother Family Medical History: Thyroid Disorder General Exam Limitations: no limitations General appearance: alert, in no apparent distress, other (this is a well- developed, well-nourished adult female patient in no acute distress. Vital signs upon presentation are temperature 98.1F, pulse 80, respirations 18, blood pressure 96/67, pulse ox 99% on room air.) Eye exam: Present: normal appearance, PERRL, EOMI. Absent: scleral icterus, conjunctival injection, periorbital swelling ENT exam: Present: normal exam, normal oropharynx, mucous membranes moist Respiratory exam: Present: normal lung sounds bilaterally. Absent: respiratory distress, wheezes, rales, rhonchi, stridor Cardiovascular Exam: Present: regular rate, normal rhythm, normal heart sounds. Absent: systolic murmur, diastolic murmur, rubs, gallop, clicks GI/Abdominal exam: Present: soft, normal bowel sounds. Absent: distended, tenderness, guarding, rebound, rigid Neurological exam: Present: alert, oriented X3, CN II-XII intact Psychiatric exam: Present: normal affect, normal mood Skin exam: Present: warm, dry, intact, normal color. Absent: rash Course Vital Signs 09/03/20 09/03/20 09/04/20 21:48 23:19 00:09 Temperature 98.1 F 98.6 F Pulse Rate 80 72 Respiratory 18 19 17 Rate Blood Pressure 96/67 101/67 O2 Sat by Pulse 99 98 Oximetry Medical Decision Making - Medical Decision Making 35 year-old female patient presented for evaluation of shortness of breath and cough. Physical examination did reveal clear equal lung sounds. Oxygen saturation is 97% on room air. Chest x-ray was negative. I did discuss findings and results with the patient. We discussed acute bronchitis as a cause for her symptoms. She'll be given prescription for Mucinex and pro-air. I did offer a DuoNeb breathing treatment, patient declined stated she wanted to go home. She'll be discharged to follow-up with her primary care physician for recheck in 1-2 days. Return parameters were discussed in detail. She verbalizes understanding and agrees with this plan. My attending is Dr. Arredondo. - Lab Data Lab Results 09/03/20 09/03/20 Range/Units 22:51 22:51 Urine HCG, Qual Not Detected (Not Detectd) Coronavirus (PCR) Not Detected (Not Detectd) - Radiology Data Radiology results: report reviewed, image reviewed One view x-ray of the chest shows normal chest with no change. Impression is by Dr. Martins. Disposition Clinical Impression: Acute bronchitis Disposition: HOME SELF-CARE Condition: Good Instructions (If sedation given, give patient instructions): Acute Bronchitis (ED) Additional Instructions: Take medications as directed. Follow-up with the primary care physician for recheck in 1-2 days. Return for any new, worsening, or concerning symptoms. Prescriptions: guaiFENesin-DM 600/30MG [Mucinex Dm] 2 each PO Q12HR PRN #20 tab.er.12h PRN Reason: Cough Albuterol Sulfate [Proair Hfa] 1 - 2 puff INHALATION Q6HR PRN #1 inhaler PRN Reason: Shortness Of Breath Is patient prescribed a controlled substance at d/c from ED?: No Referrals: None,Stated [Primary Care Provider] - 1-2 days
[2020-09-04 00:10] VITALS: BP 101/67; PULSE 72; RESP 17; TEMP 98.6
== END 2020-09-04 00:10 | disposition home or self-care (01) ==
LOC: EC 21:38
DX: J20.9 Acute bronchitis, unspecified (principal); Z20.822 Contact with and (suspected) exposure to COVID-19; E11.9 Type 2 diabetes mellitus without complications; F17.200 Nicotine dependence, unspecified, uncomplicated
CPT/HCPCS: 71045; 81025; 87635; 99285

== ENCOUNTER 2021-02-18 22:59 | Emergency (ER) | payer OTHER ==
[2021-02-19 01:35] VITALS: BP 140/95; PULSE 74; RESP 20; TEMP 98
--- NOTE | 2021-03-11 03:08 | ED ---
General Adult HPI - General Chief complaint: ENT Stated complaint: Sore throat, sob Source: patient Mode of arrival: ambulatory - History of Present Illness Initial comments: Patient left without being seen. Had testing in the waiting room for advance triage purposes. Did not want to stay to be seen by physician or get results. - Related Data Previous Rx's Medication Instructions Recorded Azithromycin [Zithromax Z-pack (6 0 mg PO DIRECTED #6 tab 08/17/18 tabs)] Cyclobenzaprine [Flexeril] 10 mg PO TID #15 tab 08/17/18 Fluconazole [Diflucan] 150 mg PO ONCE #2 tab 08/17/18 Ibuprofen [Motrin] 600 mg PO Q8HR PRN #30 tab 08/17/18 Promethazine 6.25MG/5Ml [Phenergan 6.25 mg PO Q6H #100 ml 08/17/18 Syrup] methylPREDNISolone [Medrol Dose 4 mg PO DIRECTED #1 pack 08/17/18 Pack] Amoxic-Pot Clav 875-125Mg 1 tab PO Q12HR #14 tablet 12/19/18 [Augmentin 875-125] Fluconazole [Diflucan] 150 mg PO ONCE #2 tab 12/19/18 Ibuprofen [Motrin] 600 mg PO Q8HR PRN #30 tab 12/19/18 Albuterol Sulfate [Proair Hfa] 1 - 2 puff INHALATION Q6HR PRN #1 09/03/20 inhaler guaiFENesin-DM 600/30MG [Mucinex 2 each PO Q12HR PRN #20 tab.er.12h 09/03/20 Dm] Allergies Allergy/AdvReac Type Severity Reaction Status Date / Time sulfamethoxazole Allergy Rash/Hives Verified 02/19/21 01:31 [From Bactrim] trimethoprim [From Bactrim] Allergy Rash/Hives Verified 02/19/21 01:31 Review of Systems ROS Statement: Those systems with pertinent positive or pertinent negative responses have been documented in the HPI. ROS Other: All systems not noted in ROS Statement are negative. Past Medical History Past Medical History: No Reported History History of Any Multi-Drug Resistant Organisms: MRSA Date of last positivie culture/infection: 06/08 MDRO Source:: R groin Past Surgical History: No Surgical Hx Reported Additional Past Surgical History / Comment(s): Patient has had nose surgery that resulted from a dog bite. Past Anesthesia/Blood Transfusion Reactions: No Reported Reaction Past Psychological History: No Psychological Hx Reported Smoking Status: Current every day smoker Past Alcohol Use History: Occasional Past Drug Use History: None Reported - Past Family History Mother Family Medical History: Thyroid Disorder Course Vital Signs 02/19/21 01:31 Temperature 98.0 F Pulse Rate 74 Respiratory 20 Rate Blood Pressure 140/95 O2 Sat by Pulse 100 Oximetry Medical Decision Making - Lab Data Lab Results 02/19/21 Range/Units 01:36 Coronavirus (PCR) Detected A (Not Detectd) Disposition Clinical Impression: Patient left without being seen, COVID-19 Disposition: Left W/O Being Seen by Phys Condition: Undetermined Instructions (If sedation given, give patient instructions): Coronavirus Disease 2019 (COVID-19) Is patient prescribed a controlled substance at d/c from ED?: No Referrals: None,Stated [Primary Care Provider] - 1-2 days
== END 2021-02-19 02:00 | disposition left against medical advice (07) ==
LOC: EC 22:59
DX: U07.1 COVID-19 (principal); Z53.21 Procedure and treatment not carried out due to patient leaving prior to being seen by health care provider; F17.200 Nicotine dependence, unspecified, uncomplicated; Z79.1 Long term (current) use of non-steroidal anti-inflammatories (NSAID); Z79.52 Long term (current) use of systemic steroids
CPT/HCPCS: 87635; 99283